=== PATIENT | female | born 1955 | race Caucasian/White ===

== ENCOUNTER → 2021-01-12 10:34 | Outpatient (CLI) | payer OTHER, SELFPAY ==
--- NOTE | ~2021-01-12 | XR_ITS ---
XR hip LT 2V w AP pelvis 01/12/2021 13:07 Indication: Left hip pain. Osteoarthritis. Procedure: 4 views left hip Comparison: No prior studies for comparison. 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 There is mild oste oarthritis of the right hip. There is moderate lower lumbar spondylosis. 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 Reviewed, dictated and finalized at location B. 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
== END ==
PROVIDERS: PCP Emergency Medicine; Visit Provider Nurse Practitioner Adult Health
DX: M16.12 Unilateral primary osteoarthritis, left hip (principal)
CPT/HCPCS: 73502

== ENCOUNTER → 2021-05-18 14:44 | Outpatient (CLI) | payer OTHER, SELFPAY ==
--- NOTE | ~2021-05-18 | MM_ITS ---
EXAMINATION: MM screening [facility] BI w jhon HISTORY: Screening TECHNIQUE: Craniocaudal and mediolateral oblique 3-D tomosynthesis images were obtained and synthetic 2-D images were generated. CAD analysis was submitted and interpreted. COMPARISON: Comparison to multiple prior studies sequentially, with oldest reviewed study dated 09/2017. BREAST PARENCHYMAL COMPOSITION: There are scattered areas of fibroglandular density. FINDINGS: There is no evidence of suspicious mass, calcification, or architectural distortion to sugg est malignancy in either breast. There has been no suspicious interval change. IMPRESSION: 1. No mammographic evidence of malignancy. 2. Recommend routine screening mammography in one year. BI-RADS Category 1: Negative. Reviewed, dictated and finalized at location A.
== END ==
PROVIDERS: PCP Emergency Medicine; Visit Provider Emergency Medicine
DX: Z12.31 Encounter for screening mammogram for malignant neoplasm of breast (principal)
CPT/HCPCS: 77063; 77067

== ENCOUNTER 2021-10-25 10:32 | Emergency (ER) | payer OTHER, SELFPAY ==
--- NOTE | ~2021-10-25 | XR_ITS ---
EXAMINATION: XR knee LT min 4V DATE: 10/25/2021 11:19 INDICATION: Left knee pain TECHNIQUE: Four views of the left knee were obtained. COMPARISON: None. FINDINGS: There is no fracture or osteochondral lesion. There is severe joint space narrowing in the lateral patellofemoral compartment and moderate narrowing of the medial compartment. No joint effusio n/synovitis. Soft tissues are unremarkable. IMPRESSION: 1. Moderate osteoarthritis without acute osseous abnormality. Reviewed, dictated and finalized at location B.
--- NOTE | ~2021-10-25 | US_ITS ---
EXAMINATION:US venous doppler LE LT INDICATION:Left lower extremity pain TECHNIQUE: Multiple grayscale, color flow and Doppler images of the left lower extremity deep venous systems were obtained and reviewed. COMPARISON:No prior studies for comparison. FINDINGS: The common femoral, superficial femoral and popliteal veins demonstrate normal respiratory variation, augmentation and compressibility. Color flow is also seen within the greater saphenous an d profunda veins. The posterior tibial and peroneal veins are not visualized due to swelling. There i s a Vela's cyst in the popliteal fossa measuring up to 4.8 cm. IMPRESSION: 1: No lower extremity deep venous thrombosis. Reviewed, dictated and finalized at location A.
[2021-10-25 10:31] VITALS: BP 165/104; PULSE 95; RESP 14; TEMP 37.1; O2SAT 99
--- NOTE | 2021-10-25 10:49 | ED.LOWEXIN ---
HPI - Extremity Injury (Lower) General Chief Complaint: Extremity Injury, Lower Stated Complaint: left knee, lower leg pain Time Seen by Provider: 10/25/21 10:39 Source: patient History of Present Illness HPI Narrative: 65 y/o female presents to the ER today for left knee pain and redness/wounds/drainage to left lower leg. She says that her left knee gave out on her on at home on Sunday and she has had pain in the knee and has not been able to put any weight on it since this happened. She says that she did not fall. She says that she has had trouble with this knee before. She also has open draining areas to her left lower leg. She says that this started about 3 weeks ago but has progressively gotten worse. The drainage is yellow. it is very tender. She denies any history of cellulitis. She has chronic lower extremity edemia. Related Data Home Medications Medication Instructions Recorded Confirmed methocarbamol 500 mg tablet 500 mg PO QID 12/29/20 06/08/21 Allergies Allergy/AdvReac Type Severity Reaction Status Date / Time No Known Allergies Allergy Verified 10/25/21 11:37 Review of Systems Constitutional: Constitutional: Denies chills and Denies fever(s) Eyes: Eyes: Denies change in vision ENT: Denies dizziness and Denies sore throat Cardiovascular: Cardiovascular: Denies chest pain Respiratory: Respiratory: Denies chest congestion, Denies cough, Denies dyspnea and Denies wheezing Gastrointestinal: Gastrointestinal: Denies abdominal pain, Denies diarrhea, Denies nausea and Denies vomiting Genitourinary: Genitourinary: Reports no additional female genitourinary complaints Musculoskeletal: Musculoskeletal: Reports arthralgias Neurologic: Denies dizziness and Denies headache(s) Psychiatric: Psychiatric: Reports no additional psychiatric complaints Endocrine: Endocrine: Reports no additional endocrine complaints Hematologic/Lymphatic: Hematologic/Lymphatic: Reports no additional hematologic/lymphatic complaints PMFSH Past Medical History Medical History x1 Arthritis Bipolar 1 disorder Hypertension Vaginal delivery x2 Surgical History Surgical History History of cholecystectomy History of shoulder surgery Family History Family History Mother Hypertension Family history of osteoarthritis Sibling Hypertension Father Acute myocardial infarction, Onset Age: 72 Alcoholism Hypertension Heart problem Grandparent Ovarian cancer Diabetes mellitus Hypertension Social History Social History Smoking status: Former smoker Alcohol intake: former Substance use: never Exam Const: General: no acute distress and alert Orientation/consciousness: patient oriented x3 HENMT: Head: normal to inspection Eyes: Conjunctivae: conjunctivae normal Pupils: Equal, round and reactive pupils present Neck: Neck: normal visual inspection Chest: Chest palpation & inspection: normal inspection of the chest Resp: Effort & Inspection: normal respiratory effort Auscultation: clear to auscultation bilaterally Cardio: Rate: regular rate Rhythm: regular rhythm GI: GI Palp: Yes Soft to palpation, No Tenderness to palpation present (GI) and No Guarding due to palpation present (GI) Auscultation: normal bowel sounds Skin: Other: left lower leg with circumferential erythema to lower half with about 3 open draining wounds with scaly surrounding skin, yellow drainage Neuro: General: patient oriented x3 and moves all extremities Extrem: General: edema (lower legs) bilateral Other: left knee with mild swelling, generalized tenderness with palpation, no deformity, no erythema, limited ROM due to pain Psych: Mental Status: mental status grossly nor
[2021-10-25 11:33] LABS: Basophils Absolute Auto 0.1 K/mm3 (0.0-0.1); Basophils Percent Auto 0.9 % (0.2-1.2); Eosinophils Absolute Auto 0.2 K/mm3 (0-0.3); Eosinophils Percent Auto 4.2 % (0-4.4); Hematocrit 37.7 % (37.0-47.0); Hemoglobin 11.6 g/dL (12.0-15.0); Immature Granulocyte Absolute 0.02 K/mm3 (0.00-0.031); Immature Granulocyte Percent A 0.4 % (0-0.5); Lymphocytes Absolute Auto 1.47 K/mm3 (0.9-3.2); Lymphocytes Percent Auto 26.8 % (18.3-44.2); Mean Corpuscular HGB Conc 30.8 g/dl (32-36); Mean Corpuscular Hemoglobin 30.4 pg (26-34); Mean Platelet Volume 9.3 fl (7.4-10.4); Monocytes Absolute Auto 0.8 K/mm3 (0.1-0.6); Monocytes Percent Auto 13.7 % (2.6-8.5); Platelet Count Result 294 k/mm3 (150-375); Red Blood Count 3.81 M/mm3 (4.2-5.4); Red Cell Distribution Width 13.1 % (11.5-14.5); White Blood Count 5.5 K/mm3 (4.5-10.0)
--- NOTE | 2021-10-25 11:39 | PC.NURSE ---
[id number] TO [employer] REGARDING PATIENT'S REQUEST FOR PAIN MEDICATION.
[2021-10-25 11:43] VITALS: BP 159/79; PULSE 88; RESP 20; O2SAT 97
[2021-10-25 11:44] LABS: Alanine Aminotransferase 18 U/L (4-35); Albumin Level 3.6 g/dL (3.5-5.1); Alkaline Phosphatase 109 U/L (38-126); Anion Gap 6 mmol/L (8-16); Aspartate Amino Transferase 21 U/L (14-36); Bilirubin,Total 0.5 mg/dL (0.2-1.3); Blood Urea Nitrogen 11 mg/dL (7-17); Calcium 8.5 mg/dL (8.4-10.2); Carbon Dioxide 27 mmol/L (22-30); Chloride 106 mmol/L (98-107); Estimated CRCL calculation 71 ml/min; Estimated Glomerular Filt Rate 56; Glucose 102 mg/dL (65-110); Potassium 3.4 mmol/L (3.4-5.0); Sodium 139 mmol/L (137-145)
[2021-10-25 11:45] LABS: D Dimer 0.96 ug/mL (<0.48)
[2021-10-25] MEDS: HYDROcodone/acetaminophen (*CRX) 7.5-325 MG TABLET 1 TAB PO (11:48)
[2021-10-25 14:26] VITALS: BP 154/91; PULSE 82; RESP 19; O2SAT 97
== END 2021-10-25 14:32 | disposition home or self-care (01) ==
PROVIDERS: Emergency Provider Nurse Practitioner Family; PCP Emergency Medicine
DX: L03.116 Cellulitis of left lower limb (principal); M17.12 Unilateral primary osteoarthritis, left knee; I10 Essential (primary) hypertension; R60.0 Localized edema; Z87.891 Personal history of nicotine dependence
CPT/HCPCS: 36415; 73564; 80053; 85025; 85380; 87070; 87075; 87147; 87181; 87186; 87205; 93971; 99284; A9270

== ENCOUNTER 2021-11-09 15:15 | Observation (INO) | payer OTHER, SELFPAY ==
[2021-11-09] VITALS (18 sets, daily range): BP systolic 122–141; BP diastolic 78–102; PULSE 70–143; RESP 15–27; TEMP 36.2–36.8; O2SAT 95–100
--- NOTE | ~2021-11-09 | NM_ITS ---
EXAMINATION: NM hugo stress w perfusion DATE: 11/11/2021 13:34 INDICATION: New cardiomyopathy. Atrial flutter. TECHNIQUE: Rest images were obtained following intravenous administration of 9.8 mCi Tc99m tetrofosmi n (Myoview). The patient was infused intravenously with Lexiscan (regadenoson). Then, 28.7 mCi Tc99m tetrofosmin (Myoview) was administered intravenously, and stress images were obtained. Data was recon structed into short axis and horizontal and vertical long axis SPECT images. Gated SPECT images were also obtained. COMPARISON: None. FINDINGS: Sensitivity and specificity are decreased by obesity. There is a small, mild, fixed perfusi on defect involving apical to mid inferior wall of left ventricle, consistent with infarct. There is a small, mild, fixed perfusion defect involving mid anterior segment of left ventricle, consistent wi th infarct. No reversible component to suggest ischemia. There is no segmental wall motion abnormali ty. Left ventricular ejection fraction measures 43%. IMPRESSION: 1. Small area of mild infarct involving apical to mid inferior wall of left ventricle. Small area of mild infarct involving mid anterior segment of left ventricle. 2. Left ventricular ejection fraction measures 43%. Reviewed, dictated and finalized at location A. IMPRESSION: 1. Small area of mild infarct involving apical to mid inferior wall of left mahesh tricle. Small area of mild infarct involving mid anterior segment of left ventr icle. 2. Left ventricular ejection fraction measures 43%.
--- NOTE | ~2021-11-09 | XR_ITS ---
EXAMINATION: XR chest 1V portable Exam Date/Time: 11/09/2021 17:25 CDT CLINICAL HISTORY: cp, HIGH BP AND HIGH HR TODAY, HX HTN Comparison: None available RESULT: Lines, tubes, and devices: None. Lungs and pleura: Clear. Considerable overlying summation artifact due to positioning and body habit us. Cardiomediastinal silhouette: Possible cardiomegaly versus accentuation by technique and positioning . Other: No acute osseous or upper abdominal finding. IMPRESSION: No acute cardiopulmonary process. Reviewed, dictated and finalized at location K.
[2021-11-09 15:50] LABS: Basophils Absolute Auto 0.1 K/mm3 (0.0-0.1); Basophils Percent Auto 0.9 % (0.2-1.2); Eosinophils Absolute Auto 0.2 K/mm3 (0-0.3); Eosinophils Percent Auto 3.4 % (0-4.4); Hematocrit 36.7 % (37.0-47.0); Hemoglobin 11.4 g/dL (12.0-15.0); Immature Granulocyte Absolute 0.02 K/mm3 (0.00-0.031); Immature Granulocyte Percent A 0.4 % (0-0.5); Lymphocytes Absolute Auto 1.31 K/mm3 (0.9-3.2); Lymphocytes Percent Auto 23.5 % (18.3-44.2); Mean Corpuscular HGB Conc 31.1 g/dl (32-36); Mean Corpuscular Hemoglobin 30.6 pg (26-34); Mean Corpuscular Volume 98.4 fl (80-100); Mean Platelet Volume 9.9 fl (7.4-10.4); Monocytes Absolute Auto 0.6 K/mm3 (0.1-0.6); Monocytes Percent Auto 11.5 % (2.6-8.5); Neutrophils Absolute Auto 3.4 K/mm3 (1.3-6.7); Neutrophils Percent Auto 60.3 % (45.5-73.1); Platelet Count Result 280 k/mm3 (150-375); Red Blood Count 3.73 M/mm3 (4.2-5.4); Red Cell Distribution Width 13.1 % (11.5-14.5); White Blood Count 5.6 K/mm3 (4.5-10.0)
[2021-11-09 16:01] LABS: Anion Gap 8 mmol/L (8-16); Blood Urea Nitrogen 13 mg/dL (7-17); Calcium 8.5 mg/dL (8.4-10.2); Carbon Dioxide 22 mmol/L (22-30); Chloride 108 mmol/L (98-107); Estimated CRCL calculation 72 ml/min; Estimated Glomerular Filt Rate 56; Glucose 110 mg/dL (65-110); Potassium 3.5 mmol/L (3.4-5.0); Sodium 138 mmol/L (137-145)
--- NOTE | 2021-11-09 16:37 | ECG_ITS ---
Measurements Intervals [place] Rate: 139 P: TN: 0 QRS: -11 QRSD: 116 T: 94 QT: 229 QTc: 349 Interpretive Statements ATRIAL FLUTTER/TACHYCARDIA WITH RAPID VENTRICULAR RESPONSE MODERATE INTRAVENTRICULAR CONDUCTION DELAY [110+ ms QRS DURATION] NONSPECIFIC ST & T-WAVE ABNORMALITY NO PREVIOUS ECG AVAILABLE FOR COMPARISON Electronically Signed On 11-09-2021 21:21:01 CDT by Belen Muller M.D.
[2021-11-09 17:03] LABS: Troponin I 0.025 ng/mL (0.000-0.034)
[2021-11-09 17:09] LABS: Lactic Acid Reflex 0.8 mmol/L (0.7-2.1)
[2021-11-09] MEDS: dilTIAZem HCl INJ 25 MG/5 ML VIAL 10 MG IV PUSH (17:18)
[2021-11-09] MEDS: SODIUM CHLORIDE 0.9% IV 1,000 ML 150 ML IV CONT (17:18)
[2021-11-09] MEDS: dilTIAZem HCl INJ 25 MG/5 ML VIAL 15 MG IV PUSH (17:42)
[2021-11-09] MEDS: METOPROLOL TARTRATE INJ 5 MG/5 ML VIAL IV PUSH (18:33)
--- NOTE | 2021-11-09 18:34 | ED.GENADULT ---
HPI - General Adult General Chief complaint: Recheck/Abnormal Lab/Rx Stated complaint: sent from PCP to r/o sepsis Time Seen by Provider: 11/09/21 16:15 Source: patient Mode of arrival: ambulatory Limitations: no limitations History of Present Illness HPI narrative: 65-year-old with a history of hypertension, bipolar disorder, cellulitis of the lower extremities was sent from primary doctor's office for elevated heart rate and blood pressure. Patient states that she was diagnosed with cellulitis and finished a course of antibiotic and was following up with her primary doctor and was found to have high heart rate and high blood pressure. Patient presently denies any chest pain she complains of back pain and hip pain which has been ongoing for last several years. She denies any shortness of breath. No history of fever or chills. Onset (ago): unknown Radiation: non-radiation Severity: moderate Related Data Home Medications Medication Instructions Recorded Confirmed methocarbamol 500 mg tablet 500 mg PO QID 12/29/20 06/08/21 Allergies Allergy/AdvReac Type Severity Reaction Status Date / Time No Known Allergies Allergy Verified 11/09/21 14:46 Review of Systems Review of Systems: All systems reviewed & are unremarkable except as noted in HPI and below Eyes: Eyes: Reports no additional eye complaints ENT: Reports system reviewed and no additional complaints, except as documented Cardiovascular: Cardiovascular: Reports as per HPI Respiratory: Respiratory: Reports no additional respiratory complaints Gastrointestinal: Gastrointestinal: Reports no additional gastrointestinal complaints Musculoskeletal: Musculoskeletal: Reports no additional musculoskeletal complaints Integumentary/Breasts: Skin/Breast: Reports system reviewed and no additional complaints, except as docu Neurologic: Reports system reviewed and no additional complaints, except as documented [facility] Past Medical History Medical History x1 Arthritis Bipolar 1 disorder Hypertension Vaginal delivery x2 Surgical History Surgical History History of cholecystectomy History of shoulder surgery Family History Family History Mother Hypertension Family history of osteoarthritis Sibling Hypertension Father Acute myocardial infarction, Onset Age: 72 Alcoholism Hypertension Heart problem Grandparent Ovarian cancer Diabetes mellitus Hypertension Social History Social History Smoking status: Former smoker Alcohol intake: former Substance use: never Exam Narrative: GENERAL: Well-appearing, Obese, and in no acute distress. HEAD: Normocephalic, atraumatic. EYES: PERRLA and EOMI. NECK: Supple. CHEST: Clear to auscultation. No respiratory distress. HEART: Tachycardic irregularly irregular. ABDOMEN: Soft, nontender, nondistended, normal active bowel sounds. EXTREMITIES: Normal range of motion. Lower extremities are erythematous and edematous but not warm or tender.. SKIN: Warm, dry, no rash. NEURO: No focal deficits. Alert and oriented x3. PSYCH: Normal mood and affect. Course Course Emergency Course: Patient upon arrival had a EKG which showed A. fib with RVR. I have given Cardizem 10 followed by 15 mg. Heart rate has dropped to 101 -105 with sustained for few minutes and heart rate went up again to 140 I given IV metoprolol 5 mg we will start her on IV Cardizem drip. I discussed lab work with the patient as well as with Dr. Johns will see the patient in consult. Vital Signs Vital signs: Vital Signs Temperature 36.8 C 11/09/21 15:20 Pulse Rate 70 11/09/21 15:20 Respiratory Rate 20 11/09/21 15:20 Blood Pressure 137/87 11/09/21 15:20 Pulse Oximetry 98 11/09/21 15:20 Tem
[2021-11-09] MEDS: dilTIAZem 100 MG/100 ML 100 MG/100 ML BAG IV CONT (19:12)
[2021-11-09 19:30] LABS: SARS-CoV-2 RNA PCR Negative
[2021-11-09] MEDS: ENOXAPARIN 80 MG/0.8 ML SYRINGE 135 MG SUB-Q (19:59)
--- NOTE | 2021-11-09 20:52 | ADMGEN ---
This patient, Soumya Nieves, was admitted to IMU Room 213-01 at 2036 on 11/09/2021. Patient/family oriented to hospital policies and general routines including ID bracelet, bed and alarms, visiting hours, pain management, procedures, bathroom and other care routines, personal items, smoking policy, room service/diet, and visiting hours. Information on how to activate the Rapid Response Team has been discussed. Patient/Family are encouraged to report perceived risks to care and to ask questions if they do not understand what they are told or what they should do.
--- NOTE | 2021-11-09 21:22 | ECG_ITS ---
Measurements Intervals [place] Rate: 70 P: 60 CA: 150 QRS: -2 QRSD: 109 T: 181 QT: 395 QTc: 429 Interpretive Statements SINUS RHYTHM POSSIBLE LEFT ATRIAL ENLARGEMENT [-0.1mV P WAVE IN V1/V2] T-WAVE ABNORMALITY, CONSIDER LATERAL ISCHEMIA [-0.1+ mV T WAVE IN I/aVL/V5/V6] COMPARED TO ECG 11/09/2021 16:46:11 SINUS RHYTHM HAS BEEN RESTORED Electronically Signed On 11-10-2021 18:49:09 CDT by Belen Muller M.D.
--- NOTE | 2021-11-09 22:50 | PM.IMHP ---
H&P: HPI History of Present Illness Date/Time: 11/09/21 22:50 Chief Complaint: High blood pressure, fast heart rate Narrative: 65-year-old female with past medical history of morbid obesity, hypertension and bipolar disorder who presented to the ER from primary care physician's office due to hypertension and tachycardia. The patient had went to her primary care physician for hospital follow-up for recent cellulitis. Her cellulitis had resolved. But her blood pressures in the office for elevated to 190/120 and her heart rate was 142. On arrival to the ER an EKG was performed which demonstrated AFib RVR. The patient reports that she has been having palpitations since at least July. She has whom that the palpitations were due to the ?demons and spirits? in [place]. She denies any chest pain or dyspnea on exertion. She has had increased lower extremity edema for the last year. She does spend a lot of time sitting with her legs dangling. She reports that the edema has been pretty stable for the lung a last several months. She reports occasional orthopnea. She denies paroxysmal nocturnal dyspnea. She has never had history of heart attack or stroke. She does have history of childhood asthma. She does snore but she does not know if she stops breathing. She reports chronic sleep disturbance due to her chronic back hip and knee pain. She thinks that her weight has been stable. Review of Systems Review of Systems: 12 systems were reviewed with pertinent positives and negatives per HPI. Except as documented in the HPI, all other systems were reviewed and are negative. [facility] Past Medical History Medical History (Updated 11/10/21 @ 00:59 by Mirta Coelho DO) x1 Arthritis Bipolar 1 disorder Degenerative joint disease (DJD) of lumbar spine MRI 01/2021: L3-L4 L4-L5 diffuse disc herniation and facet arthropathy causing [id number] central canal stenosis, L3-L4 has moderate bilateral foraminal stenosis left worse than right, L4-L5 has right greater than left foraminal stenosis L5-S1 has severe bilateral foraminal stenosis but no central canal stenosis Essential hypertension Morbid obesity due to excess calories Scoliosis Vaginal delivery x2 Vitamin D deficiency Surgical History Surgical History (Updated 11/09/21 @ 23:00 by Mirta Coelho DO) History of cholecystectomy History of D&C (11/2017) Status post right rotator cuff repair Family History Family History (Updated 11/10/21 @ 00:48 by Mirta Coelho DO) Mother , At age 82 Hypertension Osteoarthritis Sibling Hypertension Father , 72 Acute myocardial infarction At age 58 Alcoholism Hypertension Heart problem Grandparent Ovarian cancer Diabetes mellitus Hypertension Social History Social History (Updated 11/10/21 @ 00:50 by Mirta Coelho DO) Social History: She lives in a town home by herself. She denied ever having smoked at the time of my evaluation but reportedly is a former smoker. She denies any alcohol use at all. She has 2 children who are in their 40s. Her children live out of state. She used to work at [employer] and at a [employer]. She has been on disability since 2003 due to bipolar depression. She ambulates with a Rollator. She is a Denominational and does not want blood products. Code status: Full code (the patient states that she would not want to live on support for a long time. She would not want to be kept alive if she was dependent upon others for care.) Surrogate decision maker: Marquise Epstein (friend/restorationist leader) Smoking status: Former smoker Alcohol intake: former Substance use: never Spiritual care concerns: Yes (jehovah witness) Meds Home Medications and Allergies Home Medications Medication Instructions Recorded Confirmed Type methocarbamol 500 mg tablet 1,000 mg PO QID PRN 12/29/20 11/09/21 History bupropion HCl 150 mg t
[2021-11-09] MEDS: SODIUM CHLORIDE 0.9% IV 1,000 ML 75 ML IV CONT (23:00)
[2021-11-09] MEDS: ACETAMINOPHEN 325 MG TABLET 650 MG PO (23:05)
[2021-11-10] VITALS (17 sets, daily range): BP systolic 107–137; BP diastolic 53–74; PULSE 67–87; RESP 16–22; TEMP 36.1–37; O2SAT 96–100
--- NOTE | 2021-11-10 | ECHO_ITS ---
Patient Info Name: Soumya Nieves Age: 65 years : 1955 Gender: Female Ht: 67 in Wt: 292 lbs BSA: 2.57 m2 HR: 75 bpm BP: 123 / 67 mmHg Heart Rhythm: Sinus Rhythm Technical Quality: Poor Exam Date: 11/10/2021 10:34 AM Exam Location: [facility] Exam Room: 213 Patient Status: Inpatient Admit Date: 11/09/2021 Staff Ordering Physician: Oh Peres MD Shift Supervisor Film Processing: Soumya Matos RDCS Attending Provider: Janeen Weir MD Exam Type: CA echo doppler color flow Study Info Indications - new onset afib Complete two-dimensional, color flow and Doppler transthoracic echocardiogram is performed with contrast to opacify the left ventricle and to improve the deliniation of the left ventricle endocardial borders. Contrast/Agitated Saline Contrast/Ag. Saline: Definity Amount: 2.00 ml Administered By: Soumya Matos [facility] Existing IV Access: Yes IV Access Condition: patent with no signs of infiltration Reason for Poor Study: patient body habitus Summary 1. Ventricular enlargement and mild left ventricular hypertrophy. Severe global hypokinesis present with no segmental wall motion abnormalities. Ejection fraction measured 27%, visually 25-30%. Grade 2 diastolic dysfunction is noted. 2. Normal right ventricular size with right ventricular hypokinesis. 3. Moderate left atrial enlargement. 4. Mild right atrial enlargement. 5. Mild mitral regurgitation. 6. Mxbo-[id number] tricuspid regurgitation. 7. Moderate pulmonary hypertension, estimated pulmonary arterial systolic pressure is 54 mmHg. 8. Dilated inferior vena cava with >50% collapse upon inspiration consistent with elevated right atrial pressure, 10 mmHg. 9. Normal sinus rhythm. Left Ventricle Left ventricular chamber dimension is mildly enlarged. Left ventricular systolic function is severely reduced, estimated at 25-30%. There is mildly increased left ventricular wall thickness. Left ventricular septal wall motion is normal. The left ventricular diastolic function is grade II diastolic dysfunction. Right Ventricle Right ventricular chamber dimension is normal. Right ventricular systolic function is reduced. Left Atria Left atrial chamber dimension is moderately enlarged. Right Atria Right atrial chamber dimension is mildly enlarged. Aortic Valve The aortic valve is trileaflet. There is no aortic valve sclerosis. There is no aortic valve stenosis. There is no aortic valve regurgitation. Pulmonic Valve The pulmonic valve is normal. There is no pulmonic valve stenosis. There is no pulmonic regurgitation. Mitral Valve The mitral valve has normal leaflets. There is no mitral valve stenosis. There is mild mitral valve regurgitation. Tricuspid Valve The tricuspid valve leaflets are normal. There is no significant tricuspid valve stenosis. There is mild to moderate tricuspid valve regurgitation. Moderate pulmonary hypertension, estimated pulmonary arterial systolic pressure is 54 mmHg. Pericardium/Pleural The pericardium appears normal. There is no pericardial effusion. Inferior Vena Cava Dilated inferior vena cava with >50% collapse upon inspiration consistent with elevated right atrial pressure, 10 mmHg. Aorta The aortic root size at the sinus of Valsalva is normal. The prox ascending aorta size is normal. Left Ventricular Outflow Tract
[2021-11-10] MEDS: buPROPion HCL SR (12 HR) 150 MG TAB PO ×3 (01:06→21:05)
[2021-11-10] MEDS: TOPIRAMATE 25 MG TABLET 50 MG PO ×3 (01:06→21:05)
--- NOTE | 2021-11-10 06:00 | ECG_ITS ---
Measurements Intervals [place] Rate: 70 P: 62 AL: 154 QRS: -6 QRSD: 102 T: 175 QT: 411 QTc: 445 Interpretive Statements SINUS RHYTHM POSSIBLE LEFT ATRIAL ENLARGEMENT [-0.1mV P WAVE IN V1/V2] ST DEVIATION AND MODERATE T-WAVE ABNORMALITY, CONSIDER LATERAL ISCHEMIA [-0.1+ mV T WAVE IN I/aVL/V5/V6] COMPARED TO ECG 11/09/2021 21:32:19 NO SIGNIFICANT CHANGES Electronically Signed On 11-10-2021 18:55:29 CDT by Belen Muller M.D.
[2021-11-10] MEDS: ACETAMINOPHEN 325 MG TABLET 650 MG PO ×2 (06:38→23:49)
[2021-11-10] MEDS: APIXABAN 5 MG TABLET PO ×2 (08:58→21:06)
[2021-11-10 11:02] LABS: Hematocrit 37.4 % (37.0-47.0); Hemoglobin 11.6 g/dL (12.0-15.0); Mean Corpuscular Hemoglobin 30.4 pg (26-34); Mean Corpuscular Volume 98.2 fl (80-100); Mean Platelet Volume 9.5 fl (7.4-10.4); Platelet Count Result 286 k/mm3 (150-375); Red Blood Count 3.81 M/mm3 (4.2-5.4); Red Cell Distribution Width 13.2 % (11.5-14.5); White Blood Count 5.9 K/mm3 (4.5-10.0)
[2021-11-10 11:12] LABS: Anion Gap 8 mmol/L (8-16); Blood Urea Nitrogen 14 mg/dL (7-17); Calcium 8.6 mg/dL (8.4-10.2); Carbon Dioxide 21 mmol/L (22-30); Chloride 109 mmol/L (98-107); Estimated CRCL calculation 72 ml/min; Estimated Glomerular Filt Rate 56; Glucose 119 mg/dL (65-110); Potassium 3.7 mmol/L (3.4-5.0); Sodium 138 mmol/L (137-145)
[2021-11-10] MEDS: PERFLUTREN LIPID MICROSPHERES 1.5 ML VIAL DILUTED TO 10 ML TOTAL VOLUME IV PUSH (11:21)
--- NOTE | 2021-11-10 11:22 | IVDEFINITY ---
Prior to administration of IV Definity the patient was educated on the risks and benefits of the imaging enhancing agent including potential adverse side effects. The patient verbalized understanding. Allergies were verified. No exclusion criteria were identified and at least one of the following inclusion criteria were met: 1) physician request, 2) patient technically difficult to image (per the [place] [employer] of Echocardiography guidelines of two or more segments not discernable within the apical view), or 3) questionable left ventricular function. ?
--- NOTE | 2021-11-10 13:42 | PM.CNCAR ---
Assessment and Plan Assessment and plan (1) Paroxysmal atrial flutter: Code(s): I48.92 - Unspecified atrial flutter Status: Acute Assessment and Plan: Patient presented with asymptomatic paroxysmal atrial flutter RVR (no atrial fibrillation noted) and has converted to sinus rhythm on Cardizem. Duration of this atrial flutter is unclear Reviewed arrhythmias and cardiomyopathy extensively with patient Agree with anticoagulation with Eliquis Because of cardiomyopathy, recommend changing diltiazem to metoprolol (had childhood asthma but none rcently) (2) Cardiomyopathy: Code(s): I42.9 - Cardiomyopathy, unspecified Status: Acute Assessment and Plan: New cardiomyopathy, EF 27% Could be rate related if she has been in atrial flutter for prolonged period of time. Duration of his atrial flutter is unknown but appeared to be in sinus rhythm on 10/25/2021 ER visit. Reviewed tx: meds. Entresto if insurance covers this, losartan if not Add a diuretic furosemide 40 mg daily for a week, then 20 mg daily; also spironolactone. Discussed risk of sudden cardiac , offered LifeVest, patient declines but will think about it. Will keep overnight to adjust medications Lexiscan tomorrow to evaluate for underlying coronary disease although that seems unlikely. Close outpatient follow-up for titration of medications etc. (3) Hypertension: Qualifiers: Hypertension type: primary hypertension Qualified Code(s): I10 - Essential (primary) hypertension Code(s): I10 - Essential (primary) hypertension Status: Acute Assessment and Plan: At goal. (4) Snoring: Code(s): R06.83 - Snoring Status: Acute Assessment and Plan: Snoring and morbid obesity put her at risk of sleep apnea which may aggravate her underlying arrhythmia. Apnea link (5) Morbid obesity: Code(s): E66.01 - Morbid (severe) obesity due to excess calories Status: Acute Assessment and Plan: Patient is morbidly obese with poor mobility. (6) Bipolar 1 disorder: Code(s): F31.9 - Bipolar disorder, unspecified Status: Acute Assessment and Plan: May be delusional. History of Present Illness History of Present Illness Consult date/time: 11/10/21 13:42 Requesting physician: Oh Peres MD Consult reason: atrial fibrillation Reason For Visit: New onset A. fib with RVR Narrative: Soumya Nieves is a 65 y.o. female whom we were asked to see at the request of DR. Peres and the hospitalist for advice and opinion regarding her new onset of AFib with RVR. She has a history of hypertension, bipolar disorder, morbid obesity, and is being treated for cellulitis. The patient saw Dr. Anderson yesterday to follow-up for cellulitis and was found to have tachycardia and hypertension and referred to the emergency room. She was found to have Atrial flutter RVR, rate in the 140s initially. She was started on a Cardizem drip and converted to sinus rhythm overnight. She was started on Eliquis as well. The patient did not notice any palpitations, shortness of breath, or chest discomfort yesterday when in rapid atrial flutter. The patient sometimes does feel ?vibrations? at home. These can be very pronounced, and cause her nausea. She states that these are caused by demons in her house. We can't see them but they are there. They have not followed her to the hospital. She did not feel any of these vibrations yesterday when she was in rapid atrial flutter. Mrs. Nieves has not noticed any chest pain, pressure, or tightness. She denies any dyspnea on exertion, but wears out very easily. She has had lower extremity edema for several months. Not on a diuretic. Blood pressure is usually well controlled. She gets around on her Rollator. She actually has not left the apartment since she moved in in July except to go to the emergency room for her cellulitis on October 25,
--- NOTE | 2021-11-10 16:22 | PM.IMPN ---
Progress Note: A&P Assessment and Plan (1) Atrial fibrillation with RVR: Code(s): I48.91 - Unspecified atrial fibrillation Status: Acute (2) Hypertension: Qualifiers: Hypertension type: primary hypertension Qualified Code(s): I10 - Essential (primary) hypertension Code(s): I10 - Essential (primary) hypertension Status: Acute (3) Snoring: Code(s): R06.83 - Snoring Status: Acute Additional Plan Patient had new onset AFib that is now resolved after Cardizem drip. Will continue patient on Cardizem drip until midnight. With resolution the patient's atrial fibrillation her hypertension has resolved. Will check echocardiogram to evaluate patient's cardiac structure and function. Cardiology has been consulted. Patient did receive 1 dose of therapeutic Lovenox. The patient's chads Vasc score is 2 and she would benefit from long-term anticoagulation. Will initiate therapy with Eliquis 5 mg p.o. b.i.d.. Verapamil can be associated with increased lower extremity swelling. Will stop verapamil and switch patient to Cardizem 240 CD mg p.o. daily. Given the patient's history of morbid obesity and snoring in the setting of new onset AFib she would benefit from outpatient polysomnogram to rule out obstructive sleep apnea. Patient has been admitted as observation status. Subjective Date/time seen: 11/10/21 16:22 HPI: Chief Complaint: High blood pressure, fast heart rate Narrative: 65-year-old female with past medical history of morbid obesity, hypertension and bipolar disorder who presented to the ER from primary care physician's office due to hypertension and tachycardia. The patient had went to her primary care physician for hospital follow-up for recent cellulitis. Her cellulitis had resolved. But her blood pressures in the office for elevated to 190/120 and her heart rate was 142. On arrival to the ER an EKG was performed which demonstrated AFib RVR. The patient reports that she has been having palpitations since at least July. She has whom that the palpitations were due to the ?demons and spirits? in [place] town house. She denies any chest pain or dyspnea on exertion. She has had increased lower extremity edema for the last year. She does spend a lot of time sitting with her legs dangling. She reports that the edema has been pretty stable for the lung a last several months. She reports occasional orthopnea. She denies paroxysmal nocturnal dyspnea. She has never had history of heart attack or stroke. She does have history of childhood asthma. She does snore but she does not know if she stops breathing. She reports chronic sleep disturbance due to her chronic back hip and knee pain. She thinks that her weight has been stable. 11/10/2021 interval history: patient is 65-year-old female admitted with a high blood pressure and palpitation was found to have atrial fibrillation with RVR lower extremity edema, patient was started on Cardizem drip and converted to sinus rhythm and anticoagulated with Eliquis, patient is also found to have significant cardiomyopathy with ejection fraction 27%, patient seen by nut grinder and switch her over to metoprolol from Cardizem due to significant cardiomyopathy, nut grinder recommending LifeVest patient has declined, patient will have Lexiscan tomorrow to further evaluate cardiomyopathy and further recommendation to follow, will continue to monitor. Review of Systems Review of Systems: All systems reviewed & are unremarkable except as noted in HPI and below Exam Narrative: morbidly obese Patient is comfortable, NAD HEENT: eyes are clear and none icteric LUNGS: normal respiratory effort ABD: distended Lower extremities: edema SKIN: nonjaundiced Neuro: grossly intact. Objective Data Vital Signs Vital Signs: Vital Signs - 24 hr 11/09/21 17:05 11/09/21 17:16 11/09/21 17:30 Temperature Pulse Rate 138 H 143 H 141 H Respiratory Rate 1
[2021-11-10] MEDS: SACUBITRIL/VALSARTAN 24-26 MG TABLET 1 TAB PO (21:05)
[2021-11-10] MEDS: METOPROLOL TARTRATE 25 MG TABLET PO (21:06)
--- NOTE | 2021-11-10 22:08 | PCRCNOTE ---
Rt explained to the patient the reasoning for the apnea sleep study test and the patient stated they were in too much pain with their hip for the night and is unable to sleep. Patient stated they are uninterested in performing the sleep study test jazzy.
[2021-11-11] VITALS (15 sets, daily range): BP systolic 113–141; BP diastolic 63–84; PULSE 59–82; RESP 16–20; TEMP 36.3–36.8; O2SAT 94–100
[2021-11-11 04:42] LABS: Hematocrit 35.8 % (37.0-47.0); Hemoglobin 11.2 g/dL (12.0-15.0); Mean Corpuscular HGB Conc 31.3 g/dl (32-36); Mean Corpuscular Hemoglobin 30.1 pg (26-34); Mean Corpuscular Volume 96.2 fl (80-100); Mean Platelet Volume 9.8 fl (7.4-10.4); Platelet Count Result 278 k/mm3 (150-375); Red Blood Count 3.72 M/mm3 (4.2-5.4)
[2021-11-11 05:04] LABS: Anion Gap 7 mmol/L (8-16); Blood Urea Nitrogen 14 mg/dL (7-17); Calcium 8.5 mg/dL (8.4-10.2); Carbon Dioxide 22 mmol/L (22-30); Chloride 109 mmol/L (98-107); Estimated CRCL calculation 66 ml/min; Estimated Glomerular Filt Rate 50; Glucose 111 mg/dL (65-110); Magnesium 1.9 mg/dL (1.6-2.3); Potassium 3.6 mmol/L (3.4-5.0); Sodium 138 mmol/L (137-145)
--- NOTE | 2021-11-11 08:00 | EST_ITS ---
Patient Info Name: Soumya Nieves Age: 65 years : 1955 Gender: Female Ht: 67 in Wt: 292 lbs BSA: 2.57 m2 HR: 62 bpm BP: 130 / 91 mmHg Heart Rhythm: Sinus Rhythm Exam Date: 11/11/2021 12:44 PM Exam Location: [facility] Stress Patient Status: Outpatient Admit Date: 11/09/2021 Staff Ordering Physician: Belen Muller MD Attending Provider: Janeen Weir MD Exercise Technologist: Katy Reyes CT Nurse: viky ayala Exam Type: CA stress hugo w NM Study Info Indications I42.2 - Other hypertrophic cardiomyopathy A regadenoson stress test was performed. Summary 1. Sinus rhythm with leftward axis PACs and poor R-wave progression. 2. No significant ST segment changes following Lexiscan injection. 3. Clinically and electrocardiographically uneventful Lexiscan stress test. 4. Myocardial perfusion imaging study to be interpreted by Radiology. Protocol: Lexiscan Stress ECG Details Stage: REST Duration (min): 2 min : 9 sec HR (bpm): 61 SBP (mmHg): 130 DBP (mmHg): 91 Stage: REST Duration (min): 5 min : 53 sec HR (bpm): 59 SBP (mmHg): 130 DBP (mmHg): 91 Stage: STAGE 1 Duration (min): 1 min : 0 sec HR (bpm): 64 SBP (mmHg): 135 DBP (mmHg): 89 Stage: RECOVERY Duration (min): 1 min : 0 sec HR (bpm): 73 SBP (mmHg): 135 DBP (mmHg): 89 Stage: RECOVERY Duration (min): 2 min : 0 sec HR (bpm): 68 SBP (mmHg): 135 DBP (mmHg): 89 Stage: RECOVERY Duration (min): 3 min : 0 sec HR (bpm): 77 SBP (mmHg): 140 DBP (mmHg): 84 Stage: RECOVERY Duration (min): 3 min : 22 sec HR (bpm): 66 SBP (mmHg): 140 DBP (mmHg): 84 Rest HR: 59 bpm Peak HR: 78 bpm Rest Sys BP: 130 mmHg Peak Sys BP: 140 mmHg Max Pred HR: 157 bpm % Max Pred HR: 50 % Target HR: 133 bpm Max RPP: 10,920 bpm*mmHg Termination Reason: Completed protocol Cardiac Symptoms: None Total Time: 1 min : 0 sec Rest Greenberg BP: 91 mmHg Peak Greenberg BP: 84 mmHg Total Dose: 0.4 mg Resting ECG Sinus rhythm with leftward axis PACs and poor R-wave progression. Stress ECG No significant ST segment changes following Lexiscan injection. Report Signatures
--- NOTE | 2021-11-11 08:40 | PM.PNCARD ---
Progress Note: A&P Assessment and Plan (1) Paroxysmal atrial flutter: Code(s): I48.92 - Unspecified atrial flutter Status: Acute Assessment and Plan: Patient presented with asymptomatic paroxysmal atrial flutter RVR (no atrial fibrillation noted) and has converted to sinus rhythm on Cardizem. Duration of this atrial flutter is unclear Agree with anticoagulation with Eliquis Because of cardiomyopathy, recommend diltiazem changed to metoprolol, she remains in sinus rhythm (2) Cardiomyopathy: Code(s): I42.9 - Cardiomyopathy, unspecified Status: Acute Assessment and Plan: New cardiomyopathy, EF 27% Could be rate related if she has been in atrial flutter for prolonged period of time. Duration of his atrial flutter is unknown but appeared to be in sinus rhythm on 10/25/2021 ER visit. Entresto if insurance covers this, losartan if not Add a diuretic furosemide 40 mg daily for a week, then 20 mg daily; also spironolactone. Patient has been offered LifeVest but she declined Underwent lexiscan today. Further recommendations to follow review of these results Close outpatient follow-up for titration of medications etc. (3) Hypertension: Qualifiers: Hypertension type: primary hypertension Qualified Code(s): I10 - Essential (primary) hypertension Code(s): I10 - Essential (primary) hypertension Status: Acute Assessment and Plan: At goal. (4) Snoring: Code(s): R06.83 - Snoring Status: Acute Assessment and Plan: Snoring and morbid obesity put her at risk of sleep apnea which may aggravate her underlying arrhythmia. Apnea link was ordered but patient refused (5) Morbid obesity: Code(s): E66.01 - Morbid (severe) obesity due to excess calories Status: Acute Assessment and Plan: Patient is morbidly obese with poor mobility. (6) Bipolar 1 disorder: Code(s): F31.9 - Bipolar disorder, unspecified Status: Acute Assessment and Plan: May be delusional. Subjective Date/time seen: 11/11/21 08:40 Cardiology follow up for Afib, Cardiomyopathy, HTN She is feeling better today. Denies any shortness of breath, chest pain, palpitations. Remains in sinus rhythm. States the pain in her leg is improving. Review of Systems Constitutional: Constitutional: Reports weakness ENT: Denies Normal hearing present and Denies epistaxis Cardiovascular: Cardiovascular: Denies chest pain, Denies diaphoresis, Reports pedal edema, Reports leg edema, Denies lightheadedness, Denies palpitations, Denies dyspnea and Denies dyspnea on exertion Respiratory: Respiratory: Denies chest congestion, Denies dyspnea and Denies dyspnea on exertion Gastrointestinal: Gastrointestinal: Denies abdominal pain and Denies hematochezia Genitourinary: Genitourinary: Denies hematuria Musculoskeletal: Musculoskeletal: Reports arthralgias Integumentary/Breasts: Skin/Breast: Reports rash Neurologic: Reports system reviewed and no additional complaints, except as documented, Denies Normal hearing present and Reports weakness Psychiatric: Psychiatric: Reports no additional psychiatric complaints Endocrine: Endocrine: Denies palpitations Exam Narrative: Morbidly obese female sitting in her wheelchair. Const: General: no acute distress HENMT: General nose exam: no epistaxis Eyes: EOM: EOMs intact bilaterally Neck: Neck: supple and no JVD Thyroid: thyroid normal Carotids: no bruits Lymphatic: lymphadenopathy not noted Resp: Effort & Inspection: normal respiratory effort Auscultation: clear to auscultation bilaterally Cardio: Rate: regular rate Rhythm: regular rhythm Heart sounds: no murmurs GI: Inspection: distended Other: Obese abdomen Skin: General skin exam: normal color and no rashes or lesions noted (Healed left lower extremity cellulitis) Neuro: Cranial nerves: No Normal hearing present Cognition (Neuro): abno
[2021-11-11] MEDS: buPROPion HCL SR (12 HR) 150 MG TAB PO ×2 (09:16→20:25)
[2021-11-11] MEDS: APIXABAN 5 MG TABLET PO ×2 (09:16→20:25)
[2021-11-11] MEDS: METOPROLOL TARTRATE 25 MG TABLET PO ×2 (09:17→20:24)
[2021-11-11] MEDS: SPIRONOLACTONE 25 MG TABLET PO (09:18)
[2021-11-11] MEDS: SACUBITRIL/VALSARTAN 24-26 MG TABLET 1 TAB PO ×2 (09:18→20:24)
[2021-11-11] MEDS: TOPIRAMATE 25 MG TABLET 50 MG PO ×2 (09:19→20:26)
[2021-11-11] MEDS: ACETAMINOPHEN 325 MG TABLET 650 MG PO (12:14)
[2021-11-11] MEDS: FUROSEMIDE 40 MG TABLET PO (13:28)
--- NOTE | 2021-11-11 14:15 | PC.NURSE ---
@ 1330 returned to room -stress test completed- no c/o pain - VSS -
--- NOTE | 2021-11-11 17:32 | PM.DS ---
DS: Admitting Diagnosis Discharge Date 11/11/2021 Admitting Diagnosis High blood pressure, fast heart rate DS: Discharge Diagnosis Discharge Diagnosis (1) Atrial fibrillation with RVR: Code(s): I48.91 - Unspecified atrial fibrillation Status: Acute Assessment and Plan: Patient had new onset AFib that is now resolved after Cardizem drip. Will continue patient on Cardizem drip until midnight. With resolution the patient's atrial fibrillation. Will check echocardiogram to evaluate patient's cardiac structure and function. Cardiology has been consulted. The patient's chads Vasc score is 2 and she would benefit from long-term anticoagulation. Will initiate therapy with Eliquis 5 mg p.o. b.i.d. Will stop verapamil and switch patient to Cardizem 240 CD mg p.o. daily. a. (2) Hypertension: Qualifiers: Hypertension type: primary hypertension Qualified Code(s): I10 - Essential (primary) hypertension Code(s): I10 - Essential (primary) hypertension Status: Chronic Assessment and Plan: Chronic and stable now (3) Snoring: Code(s): R06.83 - Snoring Status: Acute Assessment and Plan: Given the patient's history of morbid obesity and snoring in the setting of new onset AFib she would benefit from outpatient polysomnogram to rule out obstructive sleep apne DS: Summary Hospital Course Hospital Course: HPI: Chief Complaint: High blood pressure, fast heart rate Narrative: 65-year-old female with past medical history of morbid obesity, hypertension and bipolar disorder who presented to the ER from primary care physician's office due to hypertension and tachycardia. The patient had went to her primary care physician for hospital follow-up for recent cellulitis. Her cellulitis had resolved. But her blood pressures in the office for elevated to 190/120 and her heart rate was 142. On arrival to the ER an EKG was performed which demonstrated AFib RVR. The patient reports that she has been having palpitations since at least July. She has whom that the palpitations were due to the ?demons and spirits? in her town [place]. She denies any chest pain or dyspnea on exertion. She has had increased lower extremity edema for the last year. She does spend a lot of time sitting with her legs dangling. She reports that the edema has been pretty stable for the lung a last several months. She reports occasional orthopnea. She denies paroxysmal nocturnal dyspnea. She has never had history of heart attack or stroke. She does have history of childhood asthma. She does snore but she does not know if she stops breathing. She reports chronic sleep disturbance due to her chronic back hip and knee pain. She thinks that her weight has been stable. 11/10/2021 interval history: patient is 65-year-old female admitted with a high blood pressure and palpitation was found to have atrial fibrillation with RVR lower extremity edema, patient was started on Cardizem drip and converted to sinus rhythm and anticoagulated with Eliquis, patient is also found to have significant cardiomyopathy with ejection fraction 27%, patient seen by negotiator and switch her over to metoprolol from Cardizem due to significant cardiomyopathy, negotiator recommending LifeVest patient has declined, patient will have Lexiscan tomorrow to further evaluate cardiomyopathy and further recommendation to follow. Stress test showed small, mild, fixed perfusion defects. No reversible ischemia. Therefore, no further intervention is needed. Pt started on a statin. Time Spent with Patient Time attestation: Total time spent providing and/or coordinating discharge services:45 minutes on day of dischrage Exam Narrative: Morbidly obese Patient is comfortable, NAD HEENT: eyes are clear and none icteric LUNGS: normal respiratory effort ABD: distended Lower extremities: edema SKIN: nonjaundiced Neuro: grossly intact. DS: Data Jeffy
--- NOTE | 2021-11-11 18:46 | PC.NURSE ---
orders to discharge home - discharge instructions discussed and pt acknowledged understanding. IV d/andrea site WNL; waiting for family arrival for discharge
== END 2021-11-11 20:49 | disposition home or self-care (01) ==
LOC: ANHED 18:43 → ANHIMU 11-10 01:28
PROVIDERS: Family Medicine; Admitting Provider Hospitalist; Emergency Provider Family Medicine; PCP Emergency Medicine; Visit Provider Family Medicine
DX: I48.92 Unspecified atrial flutter (principal); I42.9 Cardiomyopathy, unspecified; I10 Essential (primary) hypertension; F31.9 Bipolar disorder, unspecified; M51.26 Other intervertebral disc displacement, lumbar region; I34.0 Nonrheumatic mitral (valve) insufficiency; I36.1 Nonrheumatic tricuspid (valve) insufficiency; I27.20 Pulmonary hypertension, unspecified; E55.9 Vitamin D deficiency, unspecified; R06.83 Snoring; E66.01 Morbid (severe) obesity due to excess calories; Z68.42 Body mass index [BMI] 45.0-49.9, adult; Z20.822 Contact with and (suspected) exposure to COVID-19
CPT/HCPCS: 36415; 71045; 78452; 80048; 83605; 83735; 84443; 84484; 85025; 85027; 93005; 93017; 93306; 96372; 96374; 96375; 96376; 99285; A9270; A9502; C9803; G0378; J0131; J1650; J2785; J7030; Q9957; U0003; U0005

== ENCOUNTER 2022-04-06 12:25 | Outpatient (CLI) | payer OTHER, SELFPAY ==
--- NOTE | 2022-04-06 12:29 | ECHO_ITS ---
Patient Info Name: Soumya Nieves Age: 66 years : 1955 Gender: Female Ht: 67 in Wt: 280 lbs BSA: 2.52 m2 HR: 62 bpm BP: 146 / 85 mmHg Technical Quality: Fair Exam Date: 04/06/2022 1:11 PM Exam Location: [facility] Patient Status: Outpatient Admit Date: 04/06/2022 Staff Ordering Physician: Chad Esqueda DO Lay Out Inspector: Dulce Herrera RDCS Attending Provider: Chad Esqueda DO Referring Physician: Dheeraj SILVERMAN; Exam Type: CA echo doppler color flow Study Info Indications I42.9 - Cardiomyopathy, unspecified Complete two-dimensional, color flow and Doppler transthoracic echocardiogram is performed. Summary 1. Complete two-dimensional, color flow and Doppler transthoracic echocardiogram is performed. 2. Left ventricular chamber dimension is mildly enlarged. 3. Left ventricular systolic function is normal, estimated at 55-60%. 4. There is mildly increased left ventricular wall thickness. 5. The left ventricular diastolic function is abnormal. 6. E/e' 12 is mildly elevated. 7. Left atrial chamber dimension is moderately enlarged. 8. The mitral valve has mildly calcified annulus. 9. There is mild mitral valve regurgitation. 10. There is trace pulmonic regurgitation. 11. Dilated inferior vena cava with <50% collapse upon inspiration consistent with significantly elevated right atrial pressure, 15 mmHg. Left Ventricle E/e' 12 is mildly elevated. Left ventricular chamber dimension is mildly enlarged. Left ventricular systolic function is normal, estimated at 55-60%. There is mildly increased left ventricular wall thickness. The left ventricular diastolic function is abnormal. Right Ventricle Right ventricular systolic function is normal and with normal TAPSE 2.0 cm. Right ventricular chamber dimension is normal. Left Atria Left atrial chamber dimension is moderately enlarged. Right Atria Right atrial chamber dimension is normal. Aortic Valve The aortic valve is probable trileaflet. There is no aortic valve stenosis. There is no aortic valve regurgitation. Pulmonic Valve There is trace pulmonic regurgitation. Mitral Valve The mitral valve has mildly calcified annulus. There is no mitral valve stenosis. There is mild mitral valve regurgitation. Tricuspid Valve There is no tricuspid valve regurgitation. Pericardium/Pleural There is no pericardial effusion. Inferior Vena Cava Dilated inferior vena cava with <50% collapse upon inspiration consistent with significantly elevated right atrial pressure, 15 mmHg. Aorta The aortic root size at the sinus of Valsalva is normal. Mitral Valve Name Value Normal MV Doppler MV Decel [place] 243 cm/s2 MV PHT 102 ms MV Area (PHT) 2.2 cm2 4.0-5.0 MV Diastolic Function MV E Peak Velocity 85 cm/s MV A Peak Velocity 56 cm/s MV E/A 1.5 MV Decel Time 351 ms MV Annular TDI
== END 2022-04-06 12:26 | disposition home or self-care (01) ==
PROVIDERS: PCP Emergency Medicine; Visit Provider Internal Medicine Cardiovascular Disease
DX: I42.9 Cardiomyopathy, unspecified (principal); I34.0 Nonrheumatic mitral (valve) insufficiency
CPT/HCPCS: 93306

== ENCOUNTER 2022-06-01 13:02 | Outpatient (RCR) | payer OTHER, SELFPAY ==
[2022-06-01 13:36] LABS: INR 2.7; Prothrombin Time 27.9 Seconds (11.1-14.7)
== END 2022-08-30 23:59 | disposition home or self-care (01) ==
LOC: ANHLAB 13:02
PROVIDERS: PCP Emergency Medicine; Visit Provider Internal Medicine Cardiovascular Disease
DX: R79.1 Abnormal coagulation profile (principal)
CPT/HCPCS: 36415; 85610

== ENCOUNTER 2022-07-27 12:04 | Observation (INO) | payer OTHER, SELFPAY ==
--- NOTE | ~2022-07-27 | XR_ITS ---
Right Knee Technique: AP, lateral, and sunrise views were obtained. Clinical History: Pain Findings: No fracture or dislocation is seen. There is moderate change of the patellofemoral and medi al compartments, with medial compartment narrowing. There is mild degenerative change of the lateral compartment. Moderate to large joint effusion is seen. Probable 5 mm intra-articular loose body at th e posterior aspect of the joint. Impression: Moderate degenerative change of the medial and patellofemoral compartments, mild degenerative change of the lateral compartment. Moderate to large joint effusion. Probable small intra-articular loose body, as detailed above. Reviewed, dictated and finalized at location M. UNT INSTALLATION SPECIALIST Impression: Moderate degenerative change of the medial and patellofemoral compartments, mil d degenerative change of the lateral compartment. Moderate to large joint effusion. Probable small intra-articular loose body, as detailed above.
--- NOTE | ~2022-07-27 | US_ITS ---
EXAMINATION: US venous doppler LE RT DATE: 07/28/2022 12:51 INDICATION: Right lower limb pain and swelling TECHNIQUE: Grayscale ultrasound images without and with compression and Doppler ultrasound images of the right lower extremity veins were obtained. Patient refused imaging of the contralateral left lowe r limb. COMPARISON: None. FINDINGS: The visualized portions of right common femoral vein, profunda (deep) femoral vein, femoral vein, pop liteal vein, peroneal trunk, posterior tibial veins, peroneal veins, gastrocnemius vein and greater s aphenous vein outflow are patent. IMPRESSION: 1. No deep venous thrombosis in the right lower limb. Reviewed, dictated and finalized at location A. VISION AUDIO ENGINEER
[2022-07-27 12:07] VITALS: BP 149/76; PULSE 61; RESP 18; TEMP 36.3; O2SAT 100
--- NOTE | 2022-07-27 16:24 | ED.LOWEXIN ---
HPI - Extremity Injury (Lower) General Chief Complaint: Extremity Injury, Lower Stated Complaint: R knee pain Time Seen by Provider: 07/27/22 15:05 Source: patient Mode of arrival: EMS Limitations: no limitations History of Present Illness HPI Narrative: Patient is a 66 y/o female who presents to the ED via EMS with report of right knee pain. Patient reports a history of arthritis in her left hip and left knee. She has been seeing an crisis specialist at [facility]. She has difficulty ambulating at baseline and uses a walker or rollator. She has a home health worker that helps her with ADLs. She states she is typically only able to move to and from her recliner to use the restroom and walk very short distances. Over the last 2 days, she has had worsening pain in her right knee to the point she is now unable to ambulate. She has been taking Tylenol and using ice at home with minimal relief. Patient is scared that she is unable to care for herself now. Denies any redness or warmth of lower extremity. Denies fever. She is on warfarin due to history of atrial fibrillation. No previous history of blood clots. No known injury. No falls. Related Data Allergies Allergy/AdvReac Type Severity Reaction Status Date / Time No Known Allergies Allergy Verified 07/27/22 19:10 Review of Systems Review of Systems: CONSTITUTIONAL: Denies fever, chills, or sweats. CARDIOVASCULAR: Denies chest pain. RESPIRATORY: Denies dyspnea. GASTROINTESTINAL: Denies abdominal pain, nausea, vomiting. SKIN: Denies redness or warmth to left lower extremity. MUSCULOSKELETAL: Reports R knee pain, chronic pain in L hip/L knee. NEUROLOGIC: Denies headache, numbness, or weakness. All systems reviewed & are unremarkable except as noted in HPI and below [facility] Past Medical History Medical History (Updated 07/29/22 @ 11:03 by James Méndez MD) x1 Arthritis Arthritis of right knee Bipolar 1 disorder Cardiomyopathy Degenerative joint disease (DJD) of lumbar spine MRI 01/2021: L3-L4 L4-L5 diffuse disc herniation and facet arthropathy causing [id number] central canal stenosis, L3-L4 has moderate bilateral foraminal stenosis left worse than right, L4-L5 has right greater than left foraminal stenosis L5-S1 has severe bilateral foraminal stenosis but no central canal stenosis Depression with anxiety Essential hypertension Hyperlipidemia Morbid obesity due to excess calories Paroxysmal atrial flutter Scoliosis Vaginal delivery x2 Vitamin D deficiency Surgical History Surgical History History of cholecystectomy History of D&C (11/2017) Status post right rotator cuff repair Family History Family History Mother , At age 82 Hypertension Osteoarthritis Sibling Hypertension Father , 72 Acute myocardial infarction At age 58 Alcoholism Hypertension Heart problem in his sleep in his early 70s Grandparent Ovarian cancer Diabetes mellitus Hypertension Social History Social History Social History: She lives in a town home by herself. She denies any alcohol use at all. She has 2 children who are in their 40s. Her children live out of state. She used to work at [employer] and at a oil [employer]. She has been on disability since 2003 due to bipolar depression. She ambulates with a Rollator. She is a Orthodox and does not want blood products. Code status: Full code (the patient states that she would not want to live on support for a long time. She would not want to be kept alive if she was dependent upon others for care.) Surrogate decision maker: Marquise Epstein (friend/orthodoxy leader) Smoking packs per day: 1 Smoking cigarettes per day: 20.0 Years smoked: 30 Smoking pack-years: 30.00 Smoking status: Former s
[2022-07-27 17:25] VITALS: BP 147/86; PULSE 88; RESP 16; O2SAT 98
[2022-07-27] MEDS: diazePAM INJ (*CRX) 10 MG/2 ML SYRINGE 2 MG IV PUSH (17:37)
[2022-07-27 17:47] LABS: Basophils Absolute Auto 0.1 K/mm3 (0.0-0.1); Eosinophils Absolute Auto 0.5 K/mm3 (0-0.3); Eosinophils Percent Auto 5.9 % (0-4.4); Hematocrit 39.5 % (37.0-47.0); Hemoglobin 12.5 g/dL (12.0-15.0); Immature Granulocyte Absolute 0.05 K/mm3 (0.00-0.031); Immature Granulocyte Percent A 0.6 % (0-0.5); Lymphocytes Absolute Auto 1.87 K/mm3 (0.9-3.2); Lymphocytes Percent Auto 23.9 % (18.3-44.2); Mean Corpuscular HGB Conc 31.6 g/dl (32-36); Mean Corpuscular Hemoglobin 31.8 pg (26-34); Mean Corpuscular Volume 100.5 fl (80-100); Mean Platelet Volume 8.9 fl (7.4-10.4); Monocytes Absolute Auto 0.9 K/mm3 (0.1-0.6); Monocytes Percent Auto 11.9 % (2.6-8.5); Neutrophils Absolute Auto 4.4 K/mm3 (1.3-6.7); Neutrophils Percent Auto 56.7 % (45.5-73.1); Platelet Count Result 316 k/mm3 (150-375); Red Blood Count 3.93 M/mm3 (4.2-5.4); Red Cell Distribution Width 13.5 % (11.5-14.5); White Blood Count 7.8 K/mm3 (4.5-10.0)
[2022-07-27 17:57] LABS: Alanine Aminotransferase 30 U/L (6-35); Albumin Level 4.1 g/dL (3.5-5.1); Alkaline Phosphatase 157 U/L (38-126); Anion Gap 6 mmol/L (8-16); Aspartate Amino Transferase 32 U/L (14-36); Bilirubin,Total 0.8 mg/dL (0.2-1.3); Blood Urea Nitrogen 16 mg/dL (7-17); Calcium 9.2 mg/dL (8.4-10.2); Carbon Dioxide 28 mmol/L (22-30); Chloride 107 mmol/L (98-107); Estimated CRCL calculation 71 ml/min; Estimated Glomerular Filt Rate 56; Glucose 107 mg/dL (65-110); Sodium 141 mmol/L (137-145)
[2022-07-27 18:00] LABS: Partial Thromboplastin Time 63.5 SECONDS (22.3-36.8); Prothrombin Time 60.8 Seconds (11.1-14.7)
[2022-07-27 18:07] LABS: INR 7.4
--- NOTE | 2022-07-27 19:38 | PM.IMHP ---
H&P: HPI History of Present Illness Date/Time: 07/27/22 19:38 Chief Complaint: Right knee pain Narrative: This is a 66-year-old female patient came to the emergency room with complaints of right knee pain. The patient stated that her pain is so severe that she cannot ambulate on her own. The patient attempted to get up and ambulate is not able to bear weight on that right knee. The patient stated that she is seeing an business account specialist at [facility]. the patient uses a walker related. She does have a home health worker that helps her with her ADLs. The patient is typically able to move to and from her recliner to use the bathroom and walks very short distances. However over the last 2 days she is having worsening right knee pain to the point which she is not able to ambulate. She has been taking Tylenol and using ice at home with minimal relief the patient is on Coumadin for history of atrial fibrillation. She has had no previous blood clots. The patient was given IV Tylenol, Valium, morphine Zofran and vitamin K. the patient's INR 7.4. The patient is negative for influenza a B RSV and COVID. X-ray of the left knee was read as the followingModerate degenerative change of the medial and patellofemoral compartments, mild degenerative change of the lateral compartment. Moderate to large joint effusion. Probable small intra-articular loose body, as detailed above. The patient was admitted to observation status on the date of service of 07/27/2022 Review of Systems Review of Systems: See HPI All systems reviewed & are unremarkable except as noted in HPI and below Constitutional: Constitutional: Reports as per HPI and Reports no additional constitutional complaints Eyes: Eyes: Reports as per HPI and Reports no additional eye complaints ENT: Reports system reviewed and no additional complaints, except as documented and Reports Normal hearing present Cardiovascular: Cardiovascular: Reports no additional cardiovascular complaints Respiratory: Respiratory: Reports no additional respiratory complaints and Reports no additional respiratory complaints Gastrointestinal: Gastrointestinal: Reports as per HPI and Reports no additional gastrointestinal complaints Musculoskeletal: Musculoskeletal: Reports no additional musculoskeletal complaints Integumentary/Breasts: Skin/Breast: Reports system reviewed and no additional complaints, except as docu and Reports as per HPI Neurologic: Reports system reviewed and no additional complaints, except as documented, Reports as per HPI and Reports Normal hearing present Psychiatric: Psychiatric: Reports no additional psychiatric complaints and Reports as per HPI Endocrine: Endocrine: Reports no additional endocrine complaints Hematologic/Lymphatic: Hematologic/Lymphatic: Reports no additional hematologic/lymphatic complaints Allergic/Immunologic: Allergic/Immunologic: Reports no additional allergic/immunologic complaints [facility] Past Medical History Medical History (Updated 07/28/22 @ 01:17 by Melia Toney NP) x1 Arthritis Bipolar 1 disorder Cardiomyopathy Degenerative joint disease (DJD) of lumbar spine MRI 01/2021: L3-L4 L4-L5 diffuse disc herniation and facet arthropathy causing [id number] central canal stenosis, L3-L4 has moderate bilateral foraminal stenosis left worse than right, L4-L5 has right greater than left foraminal stenosis L5-S1 has severe bilateral foraminal stenosis but no central canal stenosis Depression with anxiety Essential hypertension Hyperlipidemia Morbid obesity due to excess calories Paroxysmal atrial flutter Scoliosis Vaginal delivery x2 Vitamin D deficiency Surgical History Surgical History History of cholecystectomy History of D&C (11/2017) Status post right rotator cuff repair Family History Family History Mother
[2022-07-27 20:04] LABS: Influenza A QL RT-PCR Negative (Negative); Influenza B QL RT-PCR Negative (Negative); RSV RNA, RT-PCR Negative (Negative); SARS-CoV-2 RNA PCR Negative
[2022-07-27 21:22] VITALS: BP 180/78; PULSE 68; RESP 16; TEMP 36.4; O2SAT 98
[2022-07-27] MEDS: PHYTONADIONE INJ 10 MG/ML AMP SUB-Q (21:28)
[2022-07-27] MEDS: MORPHINE SULFATE (*CRX) 4 MG/ML INJ IV PUSH (21:34)
[2022-07-27] MEDS: ONDANSETRON INJ 4 MG/2 ML VIAL IV PUSH (21:34)
--- NOTE | 2022-07-27 23:30 | ADMGEN ---
This patient, Soumya Nieves, was admitted to Medical Room 257-. Patient/family oriented to hospital policies and general routines including ID bracelet, bed and alarms, visiting hours, pain management, procedures, bathroom and other care routines, personal items, smoking policy, room service/diet, and visiting hours. Information on how to activate the Rapid Response Team has been discussed. Patient/Family are encouraged to report perceived risks to care and to ask questions if they do not understand what they are told or what they should do.
[2022-07-27 23:51] VITALS: BMI 45.3
[2022-07-28] VITALS (7 sets, daily range): BP systolic 115–131; BP diastolic 50–64; PULSE 71–80; RESP 14–20; TEMP 36.6–37.1; O2SAT 95–100
[2022-07-28] MEDS: methocarbamoL 500 MG TABLET 1000 MG PO ×3 (02:27→20:47)
[2022-07-28] MEDS: HYDROcodone/acetaminophen (*CRX) 7.5-325 MG TABLET 1 TAB PO ×4 (02:27→23:02)
[2022-07-28 06:28] LABS: Basophils Absolute Auto 0.1 K/mm3 (0.0-0.1); Basophils Percent Auto 0.8 % (0.2-1.2); Eosinophils Absolute Auto 0.4 K/mm3 (0-0.3); Hematocrit 36.3 % (37.0-47.0); Hemoglobin 11.4 g/dL (12.0-15.0); Immature Granulocyte Absolute 0.04 K/mm3 (0.00-0.031); Immature Granulocyte Percent A 0.5 % (0-0.5); Lymphocytes Absolute Auto 1.68 K/mm3 (0.9-3.2); Lymphocytes Percent Auto 22.5 % (18.3-44.2); Mean Corpuscular HGB Conc 31.4 g/dl (32-36); Mean Platelet Volume 8.8 fl (7.4-10.4); Monocytes Absolute Auto 1.1 K/mm3 (0.1-0.6); Monocytes Percent Auto 14.3 % (2.6-8.5); Neutrophils Absolute Auto 4.3 K/mm3 (1.3-6.7); Neutrophils Percent Auto 56.9 % (45.5-73.1); Platelet Count Result 259 k/mm3 (150-375); Red Blood Count 3.56 M/mm3 (4.2-5.4); Red Cell Distribution Width 13.2 % (11.5-14.5); White Blood Count 7.5 K/mm3 (4.5-10.0)
[2022-07-28 06:39] LABS: Prothrombin Time 52.4 Seconds (11.1-14.7)
[2022-07-28 06:45] LABS: Alanine Aminotransferase 27 U/L (6-35); Albumin Level 3.6 g/dL (3.5-5.1); Alkaline Phosphatase 122 U/L (38-126); Anion Gap 6 mmol/L (8-16); Aspartate Amino Transferase 28 U/L (14-36); Bilirubin,Total 1.1 mg/dL (0.2-1.3); Blood Urea Nitrogen 19 mg/dL (7-17); Calcium 8.5 mg/dL (8.4-10.2); Carbon Dioxide 25 mmol/L (22-30); Chloride 108 mmol/L (98-107); Estimated CRCL calculation 71 ml/min; Estimated Glomerular Filt Rate 56; Glucose 112 mg/dL (65-110); Magnesium 1.9 mg/dL (1.6-2.3); Potassium 4.1 mmol/L (3.4-5.0); Sodium 139 mmol/L (137-145)
[2022-07-28 06:54] LABS: INR 6.1
--- NOTE | 2022-07-28 07:53 | PM.IMPN ---
Progress Note: A&P Assessment and Plan (1) Acute pain of right knee: Code(s): M25.561 - Pain in right knee Status: Acute Assessment and Plan: The patient stated that her mobility was limited and she has been using a Rollator or walker. However today she is not able to bear weight on that knee due to the discomfort. Patient does not have history of falls. -PT OT evaluation greatly be appreciated -The patient was to follow-up with an orthopedic physician at [facility] but is not able to make it there. Orthopedic consult here. -continue with analgesics. -menagerie caretaker has been consulted for possible rehab or usp placement. -patient on steroids. -ultrasound venous Doppler of the bilateral lower extremities ordered (2) Supratherapeutic INR: Code(s): R79.1 - Abnormal coagulation profile Status: Acute Assessment and Plan: The patient is on Coumadin for atrial flutter/atrial fibrillation. She is supratherapeutic with an INR of 7.4. Vitamin K 10 mg subQ given on admission. -INR today 6.1 -repeat daily PT INR. (3) Unable to ambulate: Code(s): R26.2 - Difficulty in walking, not elsewhere classified Status: Acute Assessment and Plan: Secondary to severe pain to the right knee. -continue with analgesics. menagerie caretaker has been consulted for possible rehab -Orthopedic physician has been consulted and they plan to aspirate the knee tomorrow. -PT OT evaluation greatly be appreciated. (4) Atrial fibrillation with RVR: Code(s): I48.91 - Unspecified atrial fibrillation Status: Acute Assessment and Plan: Patient does not have a history of clots. -continue with metoprolol. -Coumadin is on hold at this time because it supratherapeutic (5) Hypertension: Qualifiers: Hypertension type: primary hypertension Qualified Code(s): I10 - Essential (primary) hypertension Code(s): I10 - Essential (primary) hypertension Status: Chronic Assessment and Plan: -continue with metoprolol -Continue with losartan -Continue with Aldactone -Continue with Lasix (6) Hyperlipidemia: Code(s): E78.5 - Hyperlipidemia, unspecified Status: Acute Assessment and Plan: -continue with atorvastatin (7) Depression with anxiety: Code(s): F41.8 - Other specified anxiety disorders Status: Acute Assessment and Plan: -continue with bupropion Plan Coumadin on hold for supratherapeutic INR Time Spent With Patient Time with patient: Greater than 35 minutes Subjective Date/time seen: 07/28/22 07:53 Interval history: 66-year-old female with a history of paroxysmal atrial fibrillation, cardiomyopathy, atrial flutter, hypertension and hyperlipidemia. Patient admitted due to right joint effusion. Patient on warfarin due to AFib and patient's INR on arrival was 7.4. Patient given 10 mg subQ vitamin K and INR decreased to 6.1. Patient does have increased pain, swelling and decreased mobility in the right knee. Patient stated that the pain and swelling started about 2 or 3 days ago. Patient denies pain below the knee and calf tenderness, there is pain to palpation to the popliteal fossa. Patient denies shortness of breath, chest pain, cough, nausea, vomiting and fever. Review of Systems Review of Systems: All systems reviewed & are unremarkable except as noted in HPI and below Exam Narrative: GENERAL: Comfortable, no acute distress HENMT: moist mucous membranes EYES: EOM intact b/l NECK: no lymphadenopathy RESPIRATORY: clear to auscultation CARDIO: RRR GI: soft, nontender, bowel sounds present SKIN: no rashes EXTREMITIES: Edematous right knee, tenderness behind the popliteal fossa, no redness present, +2 dorsalis pedis pulses, limited range of motion at the right knee. Objective Data Vital Signs Vital Signs: Vital Signs - 24 hr 07/27/22 12:07 07/27/22 17:25 07/27/22 21:22 Temperature 97.4 F L 97.6 F
[2022-07-28] MEDS: predniSONE 40 MG, predniSONE 10 MG 50 MG PO (08:52)
[2022-07-28] MEDS: buPROPion HCL SR (12 HR) 150 MG TAB PO ×2 (08:52→16:40)
[2022-07-28] MEDS: TOPIRAMATE 25 MG TABLET 50 MG PO ×2 (08:52→16:40)
[2022-07-28] MEDS: FUROSEMIDE 40 MG TABLET PO (08:53)
[2022-07-28] MEDS: METOPROLOL TARTRATE 25 MG TABLET PO ×2 (08:53→20:47)
[2022-07-28] MEDS: LOSARTAN POTASSIUM 50 MG TABLET PO (08:53)
[2022-07-28] MEDS: SPIRONOLACTONE 25 MG TABLET PO (08:53)
--- NOTE | 2022-07-28 10:07 | PCPTNOTE ---
Attempted PT evaluation, pt refused due to being tired. RN aware. Will follow.
[2022-07-28 12:04] LABS: Hematocrit 36.7 % (37.0-47.0); Hemoglobin 11.4 g/dL (12.0-15.0)
--- NOTE | 2022-07-28 12:40 | PCOTNOTE ---
Attempted OT evaluation, patient off floor for dopler. Will follow.
--- NOTE | 2022-07-28 13:22 | PM.CNOR ---
Assessment and Plan Assessment and plan (1) Arthritis of right knee: Code(s): M17.11 - Unilateral primary osteoarthritis, right knee Status: Chronic (2) Acute pain of right knee: Code(s): M25.561 - Pain in right knee Status: Acute (3) Effusion of right knee joint: Code(s): M25.461 - Effusion, right knee Status: Acute Plan 66-year-old female with a fairly acute onset right knee effusion. In the setting of an excessively high INR heme arthrosis is most likely reason for this. I told her that I would aspirate the knee tomorrow so we can get a better look at it. She has some degree of baseline knee pain because of her chronic arthritis. She currently sees Dr. Hopper at [place] for her various arthritic issues. Following. Thank you for the consultation. History of Present Illness HPI Consult date: 07/28/22 Consult reason: joint pain Chief complaint: R knee pain, R joint effusion, unable to ambulate Narrative: 66-year-old female was admitted with right knee pain. Over the past several days she has had difficulty ambulating because of pain and swelling in her right knee. She is chronically on Coumadin and was admitted with an INR 7.4 and PTT of 65.5. By her own report she had not been getting her pro times checked. Known history of hip and knee arthritis. Review of Systems Constitutional: Constitutional: Reports no additional constitutional complaints, Denies excessive sweating and Denies fatigue Eyes: Eyes: Reports no additional eye complaints ENT: Reports system reviewed and no additional complaints, except as documented Cardiovascular: Cardiovascular: Denies chest pain at rest and Denies dyspnea Respiratory: Respiratory: Reports no additional respiratory complaints and Denies dyspnea Gastrointestinal: Gastrointestinal: Reports no additional gastrointestinal complaints Musculoskeletal: Musculoskeletal: Reports as per HPI Integumentary/Breasts: Skin/Breast: Reports system reviewed and no additional complaints, except as docu Neurologic: Reports as per HPI Endocrine: Endocrine: Denies excessive sweating and Denies fatigue Hematologic/Lymphatic: Hematologic/Lymphatic: Reports easy bleeding (On blood thinners) [facility] Past Medical History Medical History (Updated 07/28/22 @ 13:28 by James Méndez MD) x1 Arthritis Arthritis of right knee Bipolar 1 disorder Cardiomyopathy Degenerative joint disease (DJD) of lumbar spine MRI 01/2021: L3-L4 L4-L5 diffuse disc herniation and facet arthropathy causing [id number] central canal stenosis, L3-L4 has moderate bilateral foraminal stenosis left worse than right, L4-L5 has right greater than left foraminal stenosis L5-S1 has severe bilateral foraminal stenosis but no central canal stenosis Depression with anxiety Essential hypertension Hyperlipidemia Morbid obesity due to excess calories Paroxysmal atrial flutter Scoliosis Vaginal delivery x2 Vitamin D deficiency Surgical History Surgical History History of cholecystectomy History of D&C (11/2017) Status post right rotator cuff repair Family History Family History Mother , At age 82 Hypertension Osteoarthritis Sibling Hypertension Father , 72 Acute myocardial infarction At age 58 Alcoholism Hypertension Heart problem in his sleep in his early 70s Grandparent Ovarian cancer Diabetes mellitus Hypertension Social History Social History Social History: She lives in a town home by herself. She denies any alcohol use at all. She has 2 children who are in their 40s. Her children live [facility] of [facility]. She used to work at [employer] and at a oil [employer]. She has been on disability since 2004 due to bipolar depression. She ambulates with a Roll
[2022-07-28 19:05] LABS: Hematocrit 35.1 % (37.0-47.0)
[2022-07-28] MEDS: ATORVASTATIN 40 MG TABLET PO (20:47)
[2022-07-29 00:26] LABS: Hematocrit 34.6 % (37.0-47.0)
[2022-07-29] MEDS: HYDROcodone/acetaminophen (*CRX) 7.5-325 MG TABLET 1 TAB PO ×4 (03:16→17:25)
[2022-07-29 05:42] LABS: Hematocrit 35.1 % (37.0-47.0); Hemoglobin 10.8 g/dL (12.0-15.0); Mean Corpuscular HGB Conc 30.8 g/dl (32-36); Mean Corpuscular Hemoglobin 30.5 pg (26-34); Mean Corpuscular Volume 99.2 fl (80-100); Mean Platelet Volume 9.2 fl (7.4-10.4); Platelet Count Result 284 k/mm3 (150-375); Red Blood Count 3.54 M/mm3 (4.2-5.4); Red Cell Distribution Width 12.7 % (11.5-14.5); White Blood Count 7.7 K/mm3 (4.5-10.0)
[2022-07-29 05:53] LABS: INR 1.4
[2022-07-29 05:55] LABS: Alanine Aminotransferase 23 U/L (6-35); Albumin Level 3.6 g/dL (3.5-5.1); Alkaline Phosphatase 112 U/L (38-126); Anion Gap 3 mmol/L (8-16); Aspartate Amino Transferase 23 U/L (14-36); Bilirubin,Total 1.4 mg/dL (0.2-1.3); Blood Urea Nitrogen 22 mg/dL (7-17); Calcium 8.6 mg/dL (8.4-10.2); Carbon Dioxide 29 mmol/L (22-30); Chloride 105 mmol/L (98-107); Estimated CRCL calculation 65 ml/min; Estimated Glomerular Filt Rate 50; Glucose 101 mg/dL (65-110); Sodium 137 mmol/L (137-145)
[2022-07-29 06:00] VITALS: BP 124/58; PULSE 65; RESP 16; TEMP 36.7; O2SAT 100
[2022-07-29 08:58] VITALS: BP 108/54; PULSE 80; RESP 16
[2022-07-29] MEDS: TOPIRAMATE 25 MG TABLET 50 MG PO ×2 (09:00→17:25)
[2022-07-29] MEDS: predniSONE 40 MG, predniSONE 10 MG 50 MG PO (09:00)
[2022-07-29 09:01] VITALS: PULSE 74
[2022-07-29] MEDS: LOSARTAN POTASSIUM 50 MG TABLET PO (09:01)
[2022-07-29] MEDS: FUROSEMIDE 40 MG TABLET PO (09:01)
[2022-07-29] MEDS: METOPROLOL TARTRATE 25 MG TABLET PO ×2 (09:01→21:21)
[2022-07-29] MEDS: SPIRONOLACTONE 25 MG TABLET PO (09:01)
[2022-07-29] MEDS: buPROPion HCL SR (12 HR) 150 MG TAB PO ×2 (09:01→17:25)
--- NOTE | 2022-07-29 09:23 | PCPTNOTE ---
Patient having knee aspiration today, nursing will contact therapy after procedure.
--- NOTE | 2022-07-29 09:23 | PCOTNOTE ---
Patient having knee aspiration today, will complete OT evaluation after procedure.
--- NOTE | 2022-07-29 11:01 | PM.PNORT ---
Progress Note: A&P Assessment and Plan (1) Hemarthrosis, right knee: Code(s): M25.061 - Hemarthrosis, right knee Status: Acute Plan 66-year-old female with acute hemarthrosis right knee most likely secondary to being supratherapeutic on Coumadin. It may take 1-2 weeks for the clotted blood in the knee to lyse and become liquidy and. At that point it can be aspirated. I asked her to contact the office for this in a couple of weeks. No restrictions from my standpoint. Does have an arthritic knee but also has arthritic hips too. Subjective Subjective Date/Time Seen: 07/29/22 11:01 Principal diagnosis: Dx: Interval history: 66-year-old female with right knee effusion which occurred well supratherapeutic on Coumadin. Exam Const: General: cooperative, alert and awake Orientation/consciousness: patient oriented x3 HENMT: Head: normal to inspection Ears: hearing grossly normal bilaterally Resp: Effort & Inspection: able to speak in complete sentences Neuro: General: patient oriented x3 Extrem: Other: Exam of the right knee reveals tense effusion with no erythema. Right knee was aspirated at the bedside using sterile technique. Less than 10 cubic centimeters of gross blood was able to be removed using a supra-patellar approach with her supine. I suspect the majority of this is currently coagulated. Sterile dressing was applied. A tolerated without difficulty. Psych: Mental Status: mental status grossly normal Objective Data Vital Signs Vital Signs: Vital Signs - 24 hr 07/28/22 12:14 07/28/22 20:47 07/28/22 21:54 Temperature 97.8 F 98.2 F Pulse Rate 71 71 74 Respiratory Rate 18 14 Blood Pressure 125/51 L 115/50 L Pulse Oximetry 98 98 Oxygen Delivery 07/29/22 06:00 07/29/22 08:58 07/29/22 09:01 Temperature 98.1 F Pulse Rate 65 80 74 Respiratory Rate 16 16 Blood Pressure 124/58 L 108/54 L Pulse Oximetry 100 Oxygen Delivery 07/29/22 09:05 Temperature Pulse Rate Respiratory Rate Blood Pressure Pulse Oximetry Oxygen Delivery Room Air Intake/Output Intake/Output: Intake & Output 07/26/22 07/27/22 07/28/22 07/29/22 23:59 23:59 23:59 23:59 Intake Total 100 / 100 1370 / 1370 440 / 440 Output Total 750 / 750 400 / 400 Balance 100 / 100 620 / 620 40 / 40 Meds/Results Medications: Active Medications Generic Name Dose Route Start Last Admin Trade Name Freq PRN Reason Stop Dose Admin Hydrocodone Bitart/Acetaminophen 1 tab 07/28/22 01:06 07/29/22 09:06 Hydrocodone/Acetaminophen (*Crx) 7.5-325 Mg Tablet PO 1 tab Q4H PRN Administration Pain Rated 7-10 Atorvastatin Calcium 40 mg 07/28/22 21:00 07/28/22 20:47 Atorvastatin 40 Mg Tablet PO 40 mg HS KELY Administration Bupropion HCl 150 mg 07/28/22 09:00 07/29/22 09:01 Bupropion Hcl Sr (12 Hr) 150 Mg Tab PO 150 mg BID KELY Administration Furosemide 40 mg 07/28/22 09:00 07/29/22 09:01 Furosemide 40 Mg Tablet PO 40 mg DAILY KELY Administration Losartan Potassium 50 mg 07/28/22 09:00 07/29/22 09:01 Losartan Potassium 50 Mg Tablet PO 50 mg DAILY KELY Administration Methocarbamol 1,000 mg 07/28/22 01:04 07/28/22 20:47 Methocarbamol 500 Mg Tablet PO 1,000 mg QID PRN Administration Spasms Metoprolol Tartrate 25 mg 07/28/22 09:00 07/29/22 09:01 Metoprolol Tartrate 25 Mg Tablet PO 25 mg Q12HR KELY Administration Prednisone 40 mg/ Prednisone 50 mg 07/28/22 08:00 07/29/22 09:00 10 mg PO 50 mg DAILY@0800 KELY Administration Spironolactone 25 mg 07/28/22 09:00 07/29/22 09:01 Spironolactone 25 Mg Tablet PO 25 mg QAM KELY Administration Topiramate 50 mg 07/28/22 09:00 07/29/22 09:00 Topiramate 25 Mg Tablet PO 50 mg BID KELY Administration Radiology Results: ITS Impressions Knee X-Ray 07/27/22 12:37 Impression: Moderate degenerative change of the medial and patellofemoral compartment
--- NOTE | 2022-07-29 11:36 | PM.DS ---
DS: Admitting Diagnosis Discharge Date 07/29/22 Admitting Diagnosis Supratherapeutic warfarin, heme arthrosis of right knee DS: Discharge Diagnosis Discharge Diagnosis (1) Acute pain of right knee: Code(s): M25.561 - Pain in right knee Status: Acute Assessment and Plan: The patient stated that her mobility was limited and she has been using a Rollator or walker. However today she is not able to bear weight on that knee due to the discomfort. Patient does not have history of falls. -PT OT evaluation greatly be appreciated -The patient was to follow-up with an orthopedic physician at [facility] but is not able to make it there. Orthopedic consult here. -continue with analgesics. -rn care manager has been consulted for possible rehab or correction placement. -patient on steroids. -ultrasound venous Doppler of the bilateral lower extremities ordered (2) Supratherapeutic INR: Code(s): R79.1 - Abnormal coagulation profile Status: Acute Assessment and Plan: The patient is on Coumadin for atrial flutter/atrial fibrillation. She is supratherapeutic with an INR of 7.4. Vitamin K 10 mg subQ given on admission. -INR today 6.1 -repeat daily PT INR. (3) Unable to ambulate: Code(s): R26.2 - Difficulty in walking, not elsewhere classified Status: Acute Assessment and Plan: Secondary to severe pain to the right knee. -continue with analgesics. rn care manager has been consulted for possible rehab -Orthopedic physician has been consulted and they plan to aspirate the knee tomorrow. -PT OT evaluation greatly be appreciated. (4) Atrial fibrillation with RVR: Code(s): I48.91 - Unspecified atrial fibrillation Status: Acute Assessment and Plan: Patient does not have a history of clots. -continue with metoprolol. -Coumadin is on hold at this time because it supratherapeutic (5) Hypertension: Qualifiers: Hypertension type: primary hypertension Qualified Code(s): I10 - Essential (primary) hypertension Code(s): I10 - Essential (primary) hypertension Status: Chronic Assessment and Plan: -continue with metoprolol -Continue with losartan -Continue with Aldactone -Continue with Lasix (6) Hyperlipidemia: Code(s): E78.5 - Hyperlipidemia, unspecified Status: Acute Assessment and Plan: -continue with atorvastatin (7) Depression with anxiety: Code(s): F41.8 - Other specified anxiety disorders Status: Acute Assessment and Plan: -continue with bupropion Plan Coumadin on hold for supratherapeutic INR DS: Summary Hospital Course Reason for hospitalization: Supratherapeutic warfarin, heme arthrosis of right knee Hospital Course: 66-year-old female presents to the ED on 07/27/2022 with chief complaint of right knee pain. Patient has a history of AFib in and severe arthritis. Patient does see an technical support specialist at [facility]. patient had developed worsening knee pain 2 days prior to ED arrival. She was unable to transfer herself and walk short distances anymore. She had home health worker that had helped her out around the house but now she is worried that she needs even more help due to her decreased mobility. Patient's extremity was swollen and had limited mobility along with pain. Patient on warfarin for AFib. INR found to be 7.4 on arrival and warfarin was held due to this. X-ray of the knee revealed moderate degenerative change of the medial and patellofemoral compartments, mild degenerative change of the lateral compartment, moderate joint effusion. Patient was evaluated by PT OT, Orthopedics consulted, patient placed on steroids. Ultrasound venous Doppler of the bilateral legs ordered due to swelling and pain. Patient only able to undergo right-sided ultrasound due to having too much pain. No DVT was seen on right side. Patient's INR on 06/28/2022 was 6.1. Ortho saw patient and plan for joint aspi
--- NOTE | 2022-07-29 13:01 | PM.IMPN ---
Progress Note: A&P Assessment and Plan (1) Acute pain of right knee: Code(s): M25.561 - Pain in right knee Status: Acute Assessment and Plan: The patient stated that her mobility was limited and she has been using a Rollator or walker. However today she is not able to bear weight on that knee due to the discomfort. Patient does not have history of falls. -PT OT evaluation greatly be appreciated -The patient was to follow-up with an orthopedic physician at [facility] but is not able to make it there. Orthopedic consult here. -continue with analgesics. -career based intervention coordinator has been consulted for possible rehab or prison placement. -patient on steroids. -ultrasound venous Doppler of the bilateral lower extremities negative for DVT -Ortho unable to aspirate knee due to clotting. Plan to see the patient in 2 weeks to attempt to aspirate the knee once blood has been lysed by the body. -Patient awaiting placement at SNF. -continue working with PT and OT (2) Supratherapeutic INR: Code(s): R79.1 - Abnormal coagulation profile Status: Acute Assessment and Plan: The patient is on Coumadin for atrial flutter/atrial fibrillation. She is supratherapeutic with an INR of 7.4. Vitamin K 10 mg subQ given on admission. -INR today 6.1 -repeat daily PT INR. (3) Unable to ambulate: Code(s): R26.2 - Difficulty in walking, not elsewhere classified Status: Acute Assessment and Plan: Secondary to severe pain to the right knee. -continue with analgesics. career based intervention coordinator has been consulted for possible rehab -Orthopedic physician has been consulted and they plan to aspirate the knee tomorrow. -PT OT evaluation greatly be appreciated. (4) Atrial fibrillation with RVR: Code(s): I48.91 - Unspecified atrial fibrillation Status: Acute Assessment and Plan: Patient does not have a history of clots. -continue with metoprolol. -Coumadin is on hold at this time because it supratherapeutic (5) Hypertension: Qualifiers: Hypertension type: primary hypertension Qualified Code(s): I10 - Essential (primary) hypertension Code(s): I10 - Essential (primary) hypertension Status: Chronic Assessment and Plan: -continue with metoprolol -Continue with losartan -Continue with Aldactone -Continue with Lasix (6) Hyperlipidemia: Code(s): E78.5 - Hyperlipidemia, unspecified Status: Acute Assessment and Plan: -continue with atorvastatin (7) Depression with anxiety: Code(s): F41.8 - Other specified anxiety disorders Status: Acute Assessment and Plan: -continue with bupropion Plan Coumadin on hold for supratherapeutic INR Subjective Date/time seen: 07/29/22 13:01 Interval history: 66-year-old female with a history of paroxysmal atrial fibrillation, cardiomyopathy, atrial flutter, hypertension and hyperlipidemia. Patient admitted due to right joint effusion. Patient's INR today 1.4. Joint swelling and pain with palpation of the right knee seem to have decreased slightly today. Patient states that she is in less pain today than she was yesterday but still in pain. Patient denies calf swelling, shortness of breath, cough, fever, nausea, vomiting, chest pain and diarrhea. Review of Systems Review of Systems: All systems reviewed & are unremarkable except as noted in HPI and below Exam Narrative: GENERAL: Comfortable, no acute distress HENMT: moist mucous membranes EYES: EOM intact b/l NECK: no lymphadenopathy RESPIRATORY: clear to auscultation CARDIO: RRR GI: soft, nontender, bowel sounds present SKIN: no rashes EXTREMITIES: Edematous right knee, tenderness behind the popliteal fossa, no redness present, +2 dorsalis pedis pulses, limited range of motion at the right knee. Although patient does have baseline limited range of motion of bilateral hips and knees due to arthritis. Objective Data Vital Signs Vital Si
[2022-07-29 17:14] VITALS: BP 126/56; PULSE 62; RESP 18; TEMP 36.7; O2SAT 97
[2022-07-29] MEDS: RIVAROXABAN 20 MG TABLET PO (17:25)
[2022-07-29 19:53] VITALS: BP 101/45; PULSE 63; RESP 18; TEMP 36; O2SAT 96
[2022-07-29 21:21] VITALS: PULSE 65
[2022-07-29] MEDS: ATORVASTATIN 40 MG TABLET PO (21:21)
[2022-07-30] VITALS (8 sets, daily range): BP systolic 100–129; BP diastolic 45–61; PULSE 60–70; RESP 17–18; TEMP 36.1–36.8; O2SAT 97–98
[2022-07-30 05:45] LABS: Basophils Absolute Auto 0.1 K/mm3 (0.0-0.1); Basophils Percent Auto 0.6 % (0.2-1.2); Eosinophils Absolute Auto 0.2 K/mm3 (0-0.3); Eosinophils Percent Auto 1.8 % (0-4.4); Hematocrit 34.1 % (37.0-47.0); Hemoglobin 11.1 g/dL (12.0-15.0); Immature Granulocyte Absolute 0.05 K/mm3 (0.00-0.031); Immature Granulocyte Percent A 0.6 % (0-0.5); Lymphocytes Absolute Auto 2.52 K/mm3 (0.9-3.2); Lymphocytes Percent Auto 30.3 % (18.3-44.2); Mean Corpuscular HGB Conc 32.6 g/dl (32-36); Mean Corpuscular Hemoglobin 32.2 pg (26-34); Mean Corpuscular Volume 98.8 fl (80-100); Mean Platelet Volume 9.1 fl (7.4-10.4); Monocytes Percent Auto 11.9 % (2.6-8.5); Neutrophils Absolute Auto 4.6 K/mm3 (1.3-6.7); Neutrophils Percent Auto 54.8 % (45.5-73.1); Platelet Count Result 304 k/mm3 (150-375); Red Blood Count 3.45 M/mm3 (4.2-5.4); Red Cell Distribution Width 12.6 % (11.5-14.5); White Blood Count 8.3 K/mm3 (4.5-10.0)
[2022-07-30 05:49] LABS: INR 1.7; Prothrombin Time 19.7 Seconds (11.1-14.7)
[2022-07-30 05:53] LABS: Alanine Aminotransferase 21 U/L (6-35); Albumin Level 3.5 g/dL (3.5-5.1); Alkaline Phosphatase 104 U/L (38-126); Anion Gap 1 mmol/L (8-16); Aspartate Amino Transferase 22 U/L (14-36); Bilirubin,Total 0.8 mg/dL (0.2-1.3); Blood Urea Nitrogen 26 mg/dL (7-17); Calcium 8.9 mg/dL (8.4-10.2); Carbon Dioxide 30 mmol/L (22-30); Chloride 102 mmol/L (98-107); Estimated CRCL calculation 65 ml/min; Estimated Glomerular Filt Rate 50; Glucose 98 mg/dL (65-110); Potassium 3.4 mmol/L (3.4-5.0); Sodium 133 mmol/L (137-145)
[2022-07-30] MEDS: HYDROcodone/acetaminophen (*CRX) 7.5-325 MG TABLET 1 TAB PO ×2 (07:08→13:08)
--- NOTE | 2022-07-30 07:37 | PM.IMPN ---
Progress Note: A&P Assessment and Plan (1) Acute pain of right knee: Code(s): M25.561 - Pain in right knee Status: Acute Assessment and Plan: The patient stated that her mobility was limited and she has been using a Rollator or walker. However today she is not able to bear weight on that knee due to the discomfort. Patient does not have history of falls. -PT OT evaluation greatly be appreciated -The patient was to follow-up with an orthopedic physician at [facility] but is not able to make it there. Orthopedic consult here. -continue with analgesics. -medicare specialist has been consulted for possible rehab or halfway placement. -patient on steroids. -ultrasound venous Doppler of the bilateral lower extremities negative for DVT -Ortho unable to aspirate knee due to clotting. Plan to see the patient in 2 weeks to attempt to aspirate the knee once blood has been lysed by the body. -Patient awaiting placement at SNF. -continue working with PT and OT (2) Supratherapeutic INR: Code(s): R79.1 - Abnormal coagulation profile Status: Acute Assessment and Plan: The patient is on Coumadin for atrial flutter/atrial fibrillation. She is supratherapeutic with an INR of 7.4. Vitamin K 10 mg subQ given on admission. -INR today 6.1 -repeat daily PT INR. -talked with Dr. Méndez today and he stated that patient is good to be on Xarelto and can follow-up with him in the office in a couple weeks. -since patient is going to SNF she will be able to access Xarelto more easily -do not recommend Coumadin due to patient not following up with scheduled PT/INRs. (3) Unable to ambulate: Code(s): R26.2 - Difficulty in walking, not elsewhere classified Status: Acute Assessment and Plan: Secondary to severe pain to the right knee. -continue with analgesics. medicare specialist has been consulted for possible rehab -Orthopedic physician has been consulted and they plan to aspirate the knee tomorrow. -PT OT evaluation greatly be appreciated. (4) Atrial fibrillation with RVR: Code(s): I48.91 - Unspecified atrial fibrillation Status: Acute Assessment and Plan: Patient does not have a history of clots. -continue with metoprolol. -Coumadin is on hold at this time because it supratherapeutic (5) Hypertension: Qualifiers: Hypertension type: primary hypertension Qualified Code(s): I10 - Essential (primary) hypertension Code(s): I10 - Essential (primary) hypertension Status: Chronic Assessment and Plan: -continue with metoprolol -Continue with losartan -Continue with Aldactone -Continue with Lasix (6) Hyperlipidemia: Code(s): E78.5 - Hyperlipidemia, unspecified Status: Acute Assessment and Plan: -continue with atorvastatin (7) Depression with anxiety: Code(s): F41.8 - Other specified anxiety disorders Status: Acute Assessment and Plan: -continue with bupropion Plan Coumadin on hold for supratherapeutic INR Subjective Date/time seen: 07/30/22 07:37 Interval history: 66-year-old female with a history of paroxysmal atrial fibrillation, cardiomyopathy, atrial flutter, hypertension and hyperlipidemia. Patient admitted due to right joint effusion. Patient INR today 1.7. Patient states that her her pain is about half of what it was when she was admitted. Patient mentions that she has increased range of motion since working with therapy. Patient denies chest pain, cough, shortness of breath, nausea, vomiting, lower extremity swelling. Review of Systems Review of Systems: All systems reviewed & are unremarkable except as noted in HPI and below Exam Narrative: GENERAL: Comfortable, no acute distress HENMT: moist mucous membranes EYES: EOM intact b/l NECK: no lymphadenopathy RESPIRATORY: clear to auscultation CARDIO: RRR GI: soft, nontender, bowel sounds present SKIN: no rashes EXTREMITIES: Edematous right knee
[2022-07-30] MEDS: predniSONE 40 MG, predniSONE 10 MG 50 MG PO (08:12)
[2022-07-30] MEDS: METOPROLOL TARTRATE 25 MG TABLET PO ×2 (08:14→21:22)
[2022-07-30] MEDS: TOPIRAMATE 25 MG TABLET 50 MG PO ×2 (08:16→17:12)
[2022-07-30] MEDS: buPROPion HCL SR (12 HR) 150 MG TAB PO ×2 (08:16→17:12)
[2022-07-30] MEDS: SPIRONOLACTONE 25 MG TABLET PO (08:16)
[2022-07-30] MEDS: LOSARTAN POTASSIUM 50 MG TABLET PO (08:16)
[2022-07-30] MEDS: FUROSEMIDE 40 MG TABLET PO (08:17)
[2022-07-30] MEDS: RIVAROXABAN 20 MG TABLET PO (17:12)
[2022-07-30] MEDS: ATORVASTATIN 40 MG TABLET PO (20:39)
[2022-07-30] MEDS: methocarbamoL 500 MG TABLET 1000 MG PO (20:39)
[2022-07-31 03:51] VITALS: BP 110/58; PULSE 60; RESP 17; TEMP 36.2; O2SAT 96
[2022-07-31 05:49] LABS: Hematocrit 36.9 % (37.0-47.0); Hemoglobin 11.6 g/dL (12.0-15.0); Mean Corpuscular HGB Conc 31.4 g/dl (32-36); Mean Corpuscular Hemoglobin 31.9 pg (26-34); Mean Corpuscular Volume 101.4 fl (80-100); Platelet Count Result 326 k/mm3 (150-375); Red Blood Count 3.64 M/mm3 (4.2-5.4); Red Cell Distribution Width 12.8 % (11.5-14.5); White Blood Count 8.7 K/mm3 (4.5-10.0)
[2022-07-31 05:58] LABS: INR 1.7; Prothrombin Time 19.1 Seconds (11.1-14.7)
[2022-07-31 06:04] LABS: Anion Gap 2 mmol/L (8-16); Blood Urea Nitrogen 28 mg/dL (7-17); Calcium 8.8 mg/dL (8.4-10.2); Carbon Dioxide 31 mmol/L (22-30); Chloride 101 mmol/L (98-107); Estimated CRCL calculation 60 ml/min; Estimated Glomerular Filt Rate 45; Glucose 93 mg/dL (65-110); Potassium 3.7 mmol/L (3.4-5.0); Sodium 134 mmol/L (137-145)
[2022-07-31] MEDS: methocarbamoL 500 MG TABLET 1000 MG PO ×2 (06:29→10:47)
--- NOTE | 2022-07-31 07:47 | PM.IMPN ---
Progress Note: A&P Assessment and Plan (1) Acute pain of right knee: Code(s): M25.561 - Pain in right knee Status: Acute Assessment and Plan: The patient stated that her mobility was limited and she has been using a Rollator or walker. However today she is not able to bear weight on that knee due to the discomfort. Patient does not have history of falls. -PT OT evaluation greatly be appreciated -The patient was to follow-up with an orthopedic physician at [facility] but is not able to make it there. Orthopedic consult here. -continue with analgesics. -health care administrator has been consulted for possible rehab or half-way placement. -patient on steroids. -ultrasound venous Doppler of the bilateral lower extremities negative for DVT -Ortho unable to aspirate knee due to clotting. Plan to see the patient in 2 weeks to attempt to aspirate the knee once blood has been lysed by the body. -patient's pain has improved since admission -Patient awaiting placement at SNF. -continue working with PT and OT (2) Supratherapeutic INR: Code(s): R79.1 - Abnormal coagulation profile Status: Acute Assessment and Plan: The patient is on Coumadin for atrial flutter/atrial fibrillation. She is supratherapeutic with an INR of 7.4. Vitamin K 10 mg subQ given on admission. -INR today 6.1 -repeat daily PT INR. -talked with Dr. Méndez today and he stated that patient is good to be on Xarelto and can follow-up with him in the office in a couple weeks. -since patient is going to SNF she will be able to access Xarelto more easily -do not recommend Coumadin due to patient not following up with scheduled PT/INRs. (3) Unable to ambulate: Code(s): R26.2 - Difficulty in walking, not elsewhere classified Status: Acute Assessment and Plan: Secondary to severe pain to the right knee. -continue with analgesics. health care administrator has been consulted for possible rehab -Orthopedic physician has been consulted and they plan to aspirate the knee tomorrow. -PT OT evaluation greatly be appreciated. (4) Atrial fibrillation with RVR: Code(s): I48.91 - Unspecified atrial fibrillation Status: Acute Assessment and Plan: Patient does not have a history of clots. -continue with metoprolol. -Coumadin is on hold at this time because it supratherapeutic (5) Hypertension: Qualifiers: Hypertension type: primary hypertension Qualified Code(s): I10 - Essential (primary) hypertension Code(s): I10 - Essential (primary) hypertension Status: Chronic Assessment and Plan: -continue with metoprolol -Continue with losartan -Continue with Aldactone -Continue with Lasix (6) Hyperlipidemia: Code(s): E78.5 - Hyperlipidemia, unspecified Status: Acute Assessment and Plan: -continue with atorvastatin (7) Depression with anxiety: Code(s): F41.8 - Other specified anxiety disorders Status: Acute Assessment and Plan: -continue with bupropion Plan Coumadin on hold for supratherapeutic INR Subjective Date/time seen: 07/31/22 07:47 Interval history: 66-year-old female with a history of paroxysmal atrial fibrillation, cardiomyopathy, atrial flutter, hypertension and hyperlipidemia. Patient admitted due to right joint effusion. Patient INR today 1.7. Patient states that pain is improving as well as range of motion. Awaiting SNF placement. Denies nausea, vomiting, chest pain, shortness a breath, cough, dizziness, fever. Review of Systems Review of Systems: All systems reviewed & are unremarkable except as noted in HPI and below Exam Narrative: GENERAL: Comfortable, no acute distress HENMT: moist mucous membranes EYES: EOM intact b/l NECK: no lymphadenopathy RESPIRATORY: clear to auscultation CARDIO: RRR GI: soft, nontender, bowel sounds present SKIN: no rashes EXTREMITIES: Edematous right knee, tenderness behind the popliteal fossa, no rednes
[2022-07-31] MEDS: HYDROcodone/acetaminophen (*CRX) 7.5-325 MG TABLET 1 TAB PO ×2 (09:07→18:56)
[2022-07-31 09:08] VITALS: PULSE 71
[2022-07-31] MEDS: LOSARTAN POTASSIUM 50 MG TABLET PO (09:08)
[2022-07-31] MEDS: METOPROLOL TARTRATE 25 MG TABLET PO ×2 (09:08→21:30)
[2022-07-31] MEDS: predniSONE 40 MG, predniSONE 10 MG 50 MG PO (09:08)
[2022-07-31] MEDS: FUROSEMIDE 40 MG TABLET PO (09:08)
[2022-07-31] MEDS: TOPIRAMATE 25 MG TABLET 50 MG PO ×2 (09:08→18:52)
[2022-07-31] MEDS: buPROPion HCL SR (12 HR) 150 MG TAB PO ×2 (09:08→18:53)
[2022-07-31] MEDS: SPIRONOLACTONE 25 MG TABLET PO (09:11)
[2022-07-31 09:12] VITALS: BP 127/55; PULSE 71; RESP 14; O2SAT 97
[2022-07-31 14:00] VITALS: BP 118/60; PULSE 58; RESP 15; TEMP 36.5; O2SAT 95
[2022-07-31] MEDS: RIVAROXABAN 20 MG TABLET PO (18:53)
[2022-07-31 21:30] VITALS: PULSE 56
[2022-07-31] MEDS: ATORVASTATIN 40 MG TABLET PO (21:30)
[2022-07-31 22:00] VITALS: BP 113/65; PULSE 61; RESP 18; TEMP 36.3; O2SAT 96
[2022-08-01] MEDS: HYDROcodone/acetaminophen (*CRX) 7.5-325 MG TABLET 1 TAB PO ×3 (04:00→17:15)
[2022-08-01 06:00] VITALS: BP 128/64; PULSE 58; RESP 18; TEMP 36.2; O2SAT 96
[2022-08-01 06:02] LABS: Hematocrit 38.6 % (37.0-47.0); Hemoglobin 12.1 g/dL (12.0-15.0); Mean Corpuscular HGB Conc 31.3 g/dl (32-36); Mean Corpuscular Hemoglobin 31.8 pg (26-34); Mean Corpuscular Volume 101.3 fl (80-100); Mean Platelet Volume 9.1 fl (7.4-10.4); Platelet Count Result 372 k/mm3 (150-375); Red Blood Count 3.81 M/mm3 (4.2-5.4); Red Cell Distribution Width 12.8 % (11.5-14.5); White Blood Count 9.5 K/mm3 (4.5-10.0)
[2022-08-01 06:13] LABS: Prothrombin Time 22.3 Seconds (11.1-14.7)
[2022-08-01 06:15] LABS: Anion Gap 7 mmol/L (8-16); Blood Urea Nitrogen 27 mg/dL (7-17); Carbon Dioxide 29 mmol/L (22-30); Chloride 99 mmol/L (98-107); Estimated CRCL calculation 65 ml/min; Estimated Glomerular Filt Rate 50; Glucose 95 mg/dL (65-110); Potassium 3.5 mmol/L (3.4-5.0); Sodium 135 mmol/L (137-145)
--- NOTE | 2022-08-01 06:50 | PC.NURSE ---
Refused heating pad to right knee this shift [id number] Took norco x1 this shift for r knee pain
[2022-08-01 08:14] VITALS: BP 126/54; PULSE 68; RESP 18; O2SAT 100
[2022-08-01] MEDS: LOSARTAN POTASSIUM 50 MG TABLET PO (08:16)
[2022-08-01] MEDS: TOPIRAMATE 25 MG TABLET 50 MG PO ×2 (08:16→17:12)
[2022-08-01] MEDS: FUROSEMIDE 40 MG TABLET PO (08:16)
[2022-08-01] MEDS: predniSONE 40 MG, predniSONE 10 MG 50 MG PO (08:16)
[2022-08-01] MEDS: SPIRONOLACTONE 25 MG TABLET PO (08:16)
[2022-08-01] MEDS: buPROPion HCL SR (12 HR) 150 MG TAB PO ×2 (08:16→17:12)
[2022-08-01 08:17] VITALS: PULSE 70
[2022-08-01] MEDS: METOPROLOL TARTRATE 25 MG TABLET PO ×2 (08:17→20:16)
--- NOTE | 2022-08-01 11:44 | PCOTNOTE ---
Per patient, patient just back to bed after sitting up for some time due to hip pain. Patient also reports d/c today. Patient not seen for OT at this time.
--- NOTE | 2022-08-01 13:26 | PM.DS ---
DS: Admitting Diagnosis Discharge Date 08/01/22 Admitting Diagnosis Hemarthrosis, supratherapeutic Coumadin DS: Discharge Diagnosis Discharge Diagnosis (1) Acute pain of right knee: Code(s): M25.561 - Pain in right knee Status: Acute Assessment and Plan: The patient stated that her mobility was limited and she has been using a Rollator or walker. However today she is not able to bear weight on that knee due to the discomfort. Patient does not have history of falls. -PT OT evaluation greatly be appreciated -The patient was to follow-up with an orthopedic physician at [facility] but is not able to make it there. Orthopedic consult here. -continue with analgesics. -day care attendant has been consulted for possible rehab or long-term placement. -patient on steroids. -ultrasound venous Doppler of the bilateral lower extremities negative for DVT -Ortho unable to aspirate knee due to clotting. Plan to see the patient in 2 weeks to attempt to aspirate the knee once blood has been lysed by the body. -patient's pain has improved since admission -Patient awaiting placement at SNF. -continue working with PT and OT (2) Supratherapeutic INR: Code(s): R79.1 - Abnormal coagulation profile Status: Acute Assessment and Plan: The patient is on Coumadin for atrial flutter/atrial fibrillation. She is supratherapeutic with an INR of 7.4. Vitamin K 10 mg subQ given on admission. -INR today 6.1 -repeat daily PT INR. -talked with Dr. Méndez today and he stated that patient is good to be on Xarelto and can follow-up with him in the office in a couple weeks. -since patient is going to SNF she will be able to access Xarelto more easily -do not recommend Coumadin due to patient not following up with scheduled PT/INRs. (3) Unable to ambulate: Code(s): R26.2 - Difficulty in walking, not elsewhere classified Status: Acute Assessment and Plan: Secondary to severe pain to the right knee. -continue with analgesics. day care attendant has been consulted for possible rehab -Orthopedic physician has been consulted and they plan to aspirate the knee tomorrow. -PT OT evaluation greatly be appreciated. (4) Atrial fibrillation with RVR: Code(s): I48.91 - Unspecified atrial fibrillation Status: Acute Assessment and Plan: Patient does not have a history of clots. -continue with metoprolol. -Coumadin is on hold at this time because it supratherapeutic (5) Hypertension: Qualifiers: Hypertension type: primary hypertension Qualified Code(s): I10 - Essential (primary) hypertension Code(s): I10 - Essential (primary) hypertension Status: Chronic Assessment and Plan: -continue with metoprolol -Continue with losartan -Continue with Aldactone -Continue with Lasix (6) Hyperlipidemia: Code(s): E78.5 - Hyperlipidemia, unspecified Status: Acute Assessment and Plan: -continue with atorvastatin (7) Depression with anxiety: Code(s): F41.8 - Other specified anxiety disorders Status: Acute Assessment and Plan: -continue with bupropion Plan Coumadin on hold for supratherapeutic INR DS: Summary Hospital Course Reason for hospitalization: Hemarthrosis, supratherapeutic Coumadin Hospital Course: 66-year-old female presents to the ED on 07/27/2022 with chief complaint of right knee pain.? Patient has a history of AFib in and severe arthritis.? Patient does see an client care specialist at [facility]. patient had developed worsening knee pain 2 days prior to ED arrival.? She was unable to transfer herself and walk short distances anymore.? She had home health worker that had helped her out around the house but now she is worried that she needs even more help due to her decreased mobility.? Patient's extremity was swollen and had limited mobility along with pain.? Patient on warfarin for AFib.? INR found to be 7.4 on arrival and warfarin was held due
[2022-08-01 14:22] VITALS: BP 118/55; PULSE 64; RESP 18; TEMP 36.4; O2SAT 95
[2022-08-01 14:41] LABS: EDCOVIDSCREEN Negative (Negative)
[2022-08-01] MEDS: RIVAROXABAN 20 MG TABLET PO (17:12)
[2022-08-01 20:16] VITALS: PULSE 68
[2022-08-01] MEDS: methocarbamoL 500 MG TABLET 1000 MG PO (20:17)
[2022-08-01] MEDS: ATORVASTATIN 40 MG TABLET PO (20:17)
[2022-08-01 21:49] VITALS: BP 112/70; PULSE 60; RESP 18; TEMP 36.3; O2SAT 95
== END 2022-08-01 22:40 ==
LOC: ANHED 18:49 → ANH2MED 07-28 02:39 → ANH3MEDSUR 08-02 10:42
PROVIDERS: Internal Medicine Critical Care Medicine; Nurse Practitioner; Physician Assistant; Admitting Provider Internal Medicine; Emergency Provider Emergency Medicine; PCP Emergency Medicine; Visit Provider Student in an Organized Health Care Education/Training Program
DX: M25.561 Pain in right knee (principal); R79.1 Abnormal coagulation profile; R26.2 Difficulty in walking, not elsewhere classified; M25.461 Effusion, right knee; M17.11 Unilateral primary osteoarthritis, right knee; M16.12 Unilateral primary osteoarthritis, left hip; I48.91 Unspecified atrial fibrillation; F31.9 Bipolar disorder, unspecified; M47.816 Spondylosis without myelopathy or radiculopathy, lumbar region; M25.061 Hemarthrosis, right knee; I10 Essential (primary) hypertension; F41.8 Other specified anxiety disorders; I42.9 Cardiomyopathy, unspecified; E66.01 Morbid (severe) obesity due to excess calories; Z68.42 Body mass index [BMI] 45.0-49.9, adult; E78.5 Hyperlipidemia, unspecified; I48.0 Paroxysmal atrial fibrillation; I48.92 Unspecified atrial flutter; M41.9 Scoliosis, unspecified; Z20.822 Contact with and (suspected) exposure to COVID-19; Z79.01 Long term (current) use of anticoagulants; Z87.891 Personal history of nicotine dependence; Z99.89 Dependence on other enabling machines and devices; Z84.89 Family history of other specified conditions; Z82.49 Family history of ischemic heart disease and other diseases of the circulatory system
CPT/HCPCS: 36415; 73562; 80048; 80053; 83735; 84443; 85014; 85018; 85025; 85027; 85610; 85730; 87426; 87637; 93971; 96365; 96372; 96375; 97110; 97161; 97165; 97530; 97535; 99285; A9270; C9803; G0378; J0131; J2270; J2405; J3360; J3430; J7512

== ENCOUNTER 2023-06-01 12:57 | Outpatient (CLI) | payer OTHER, SELFPAY ==
[2023-06-01 13:28] LABS: Alanine Aminotransferase 26 U/L (6-35); Albumin Level 3.8 g/dL (3.5-5.1); Alkaline Phosphatase 119 U/L (38-126); Anion Gap 6 mmol/L (8-16); Aspartate Amino Transferase 27 U/L (14-36); Bilirubin,Total 0.8 mg/dL (0.2-1.3); Blood Urea Nitrogen 11 mg/dL (7-17); Calcium 9.1 mg/dL (8.4-10.2); Carbon Dioxide 25 mmol/L (22-30); Chloride 106 mmol/L (98-107); Cholesterol 125 mg/dL (0-200); Estimated Glomerular Filt Rate 45; Glucose 98 mg/dL (65-110); HDL Direct 57 mg/dL; Potassium 4.3 mmol/L (3.4-5.0); Sodium 137 mmol/L (137-145); Triglycerides 66 mg/dL (<150)
[2023-06-01 13:40] LABS: LDL Cholesterol Direct 53 mg/dL
[2023-06-01 17:54] LABS: Vitamin D 25 Hydroxy 27.4 ng/mL
== END 2023-06-01 12:58 | disposition home or self-care (01) ==
PROVIDERS: PCP Emergency Medicine; Visit Provider Emergency Medicine
DX: E78.5 Hyperlipidemia, unspecified (principal); E55.9 Vitamin D deficiency, unspecified
CPT/HCPCS: 36415; 80053; 80061; 82306

== ENCOUNTER 2024-05-09 12:29 | Outpatient (CLI) | payer OTHER, SELFPAY ==
[2024-05-09 13:08] LABS: Alanine Aminotransferase 22 U/L (6-35); Albumin Level 3.9 g/dL (3.5-5.1); Alkaline Phosphatase 162 U/L (38-126); Anion Gap 7 mmol/L (4-12); Aspartate Amino Transferase 31 U/L (14-36); Bilirubin,Total 0.8 mg/dL (0.2-1.3); Blood Urea Nitrogen 14 mg/dL (7-17); Calcium 9.1 mg/dL (8.4-10.2); Carbon Dioxide 25 mmol/L (22-30); Chloride 104 mmol/L (98-107); Cholesterol 137 mg/dL (0-200); Estimated Glomerular Filt Rate 41; Glucose 110 mg/dL (65-110); HDL Direct 49 mg/dL; Potassium 4.2 mmol/L (3.4-5.0); Sodium 136 mmol/L (137-145); Triglycerides 87 mg/dL (<150)
[2024-05-09 13:19] LABS: LDL Cholesterol Direct 54 mg/dL
[2024-05-09 13:54] LABS: Vitamin D 25 Hydroxy 20.7 ng/mL
== END 2024-05-09 12:30 | disposition home or self-care (01) ==
PROVIDERS: PCP Emergency Medicine; Visit Provider Emergency Medicine
DX: E55.9 Vitamin D deficiency, unspecified (principal); E78.5 Hyperlipidemia, unspecified
CPT/HCPCS: 36415; 80053; 80061; 82306